=== PATIENT | male | born 1950 | race Caucasian/White ===

== ENCOUNTER 2019-11-26 15:10 | Inpatient (IN) | payer MEDICARE, OTHER ==
[~2019-11-26] VITALS: Ht 180.3 cm; Wt 115.7 kg
--- NOTE | 2019-11-26 16:31 | REP ---
Right lower extremity Duplex Doppler venous ultrasound: Real time compression and duplex Doppler interrogation of the right lower extremity deep venous system is performed. The right common femoral, superficial femoral and popliteal veins are fully compressible with transducer pressure and demonstrate normal spontaneous and phasic flow, without evidence of deep venous thrombosis. Impression: No evidence of deep venous thrombosis of the right lower extremity femoral popliteal venous system. Electronically Signed by Ranjith Lugo MD 11/26/2019 04:22 P
[2019-11-26 16:41] LABS: BASO % 0.4 % (0.0-1.0); EOS # 0.2 10^3/uL (0.0-0.5); EOS % 1.8 % (0.0-3.0); HEMATOCRIT 38.5 % (42.0-52.0); HEMOGLOBIN 12.8 g/dl (13.5-17.5); LYMPH # 0.9 10^3/uL (1.5-5.0); LYMPH % 8.6 % (24.0-44.0); MEAN CORPUSCULAR HEMOGLOBIN 31.4 pg (27.0-33.0); MEAN CORPUSCULAR HGB CONC 33.2 g/dl (32.0-36.5); MEAN CORPUSCULAR VOLUME 94.6 fl (80.0-96.0); MONO # 0.8 10^3/uL (0.0-0.8); MONO % 7.8 % (0.0-5.0); NEUTROPHILS # 8.6 10^3/uL (1.5-8.5); NEUTROPHILS % 80.8 % (36.0-66.0); PLATELET COUNT, AUTOMATED 234 10^3/uL (150-450); RED BLOOD COUNT 4.07 10^6/uL (4.30-6.10); WHITE BLOOD COUNT 10.6 10^3/uL (4.0-10.0)
[2019-11-26 17:12] LABS: BLOOD UREA NITROGEN 18 MG/DL (7-18); CARBON DIOXIDE LEVEL 28 MEQ/L (21-32); CHLORIDE LEVEL 104 MEQ/L (98-107); CREATININE FOR GFR 0.93 MG/DL (0.70-1.30); GLOMERULAR FILTRATION RATE > 60.0 (>49); GLUCOSE, FASTING 108 MG/DL (70-100); POTASSIUM SERUM 3.9 MEQ/L (3.5-5.1); SODIUM LEVEL 138 MEQ/L (136-145)
[2019-11-26 17:33] LABS: ERYTHROCYTE SEDIMENTATION RATE 85 mm/hr (0-20)
[2019-11-26 17:56] LABS: URIC ACID 4.6 MG/DL (3.5-7.2)
[2019-11-26] MEDS ORDERED: ceFAZolin SOD 1 GM in D5W MINI-BAG PLUS 50 ML IV ONE (18:00)
[2019-11-26] MEDS ORDERED: VANCOMYCIN HCL 1,000 MG, VIAL MATE ADAPTER 1 EACH in D5W 250 ML IV SCH (18:30)
[2019-11-26] MEDS ORDERED: GLAT40IN SC (18:40)
[2019-11-26] MEDS ORDERED: TERA5CAP3 PO (18:40)
[2019-11-26] MEDS ORDERED: FISH1000 PO ×2 (18:40)
[2019-11-26] MEDS ORDERED: OMEP1CAP73 PO (18:40)
[2019-11-26] MEDS ORDERED: GABA-843 PO (18:40)
[2019-11-26] MEDS ORDERED: BACL10TA2 PO (18:40)
[2019-11-26] MEDS ORDERED: ASPI81TA26 PO (18:40)
[2019-11-26] MEDS ORDERED: MAGN400C2 PO (18:40)
[2019-11-26] MEDS ORDERED: SIMV40TA20 PO (18:40)
[2019-11-26] MEDS ORDERED: D-40TAB2 PO (18:40)
[2019-11-26] MEDS ORDERED: CYAN1000VL IM (18:40)
[2019-11-26] MEDS ORDERED: cefTRIAXone SOD 2 GM in D5W MINI-BAG PLUS 50 ML IV SCH (20:00)
--- NOTE | 2019-11-26 20:05 | REP ---
Right knee series: Five views. History: Right knee pain. Findings: Five views of the right knee demonstrate marked swelling in the prepatellar soft tissues, question prepatellar bursitis. There is moderate three compartment osteoarthritis with patellofemoral narrowing and spur formation as well as medial and lateral compartment spur formation. There is an ossific density posterolaterally which may be a fabella. Lateral film however suggests an anterior loose body. No evidence of joint effusion. No fracture is seen. Impression: Marked prepatellar soft tissue swelling, question bursitis. Three compartment osteoarthritis. Possible loose bodies. Electronically Signed by Thomas Odonnell MD 11/26/2019 08:15 P
--- NOTE | 2019-11-26 21:05 | PHACANCOPD ---
PHARMACY VANCOMYCIN DOSING Pt Demographics Demographics Patient Age:69 , Weight:115.700 , Gender: male Adjusted Body Weight Date: 11/26/19, Adjusted Body Weight: Kg Events Past 24 Hours Events Past 24 Hours: YES: Elevation in WBC; NO: Dialysis, Diuretic Therapy, Change in CrCl, Fever, Pending Diagnostics, Pending Procedures, Other Vancomycin Vancomycin indication: Cellulitis, right knee pain Vancomycin Target Ranges: 10-20 mcg/ml Vancomycin Load Y/N: Yes Load Dose Date Time Vancomycin Load Dose: 2000mg Date: 11/26/19 Time: 2100 Vancomycin Dose Date: 11/26/19. Current Vancomycin Dose: [ 1500mg q8h @0500 ] Intermittent Dosing?: No Labs Labs Item Value Date Time White Blood Count 10.6 10^3/uL H 11/26/19 1625 Erythrocyte Sedimentation Rate 85 mm/hr H 11/26/19 1625 Creatinine 0.93 MG/DL 11/26/19 1625 Glomerular Filtration Rate > 60.0 11/26/19 1625 C-Reactive Protein, Quantitative 20.70 MG/DL H 11/26/19 1625 Creatinine Clearance Date:11/26/19. Creatinine Clearance: [ 82 mL/min ]. Assessment and Plan Maintaining Current Dose?: Yes Reason for dose change: No Dose Change Pharmacist Note Pharmacist Note Date: 11/26/19. Pharmacist note: Patient is a 69-year-old male who presented to [facility] with cellulitis and knee pain. He has no record of vancomycin therapy at [facility] and has great renal function. He was placed on broad- spectrum antibiotic therapy with ceftriaxone and vancomycin. A 2 gram loading dose of vancomycin was scheduled for 2099 tonight, with a subsequent maintenance dose of 1500mg every 8 hours starting tomorrow morning at 0500. A vancomycin trough level was scheduled for tomorrow at 2000, with a goal trough of between 10-20mcg/dL. We will continue to monitor and make adjustments as needed. [facility] Nov 26, 2019 21:05
--- NOTE | 2019-11-26 21:40 | CR ---
DATE OF CONSULTATION: 11/26/2019 CHIEF COMPLAINT: Right lower extremity redness and swelling. HISTORY OF THE PRESENT ILLNESS: This is a 69-year-old man who was brought into the emergency department for a 6 days history of spontaneous onset right lower extremity redness and swelling. This came on spontaneously, although he states he does have MS, so may have some difficulties with sensation, so maybe he bumped his knee. 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 He was doing some naga last week and being on his knees a lot, but he was unable to do that this weekend. He has had some systemic symptoms with fevers, chills and sweats but no other constitutional symptoms. No dysuria. No problems with bowel or bladder function. No cough or hemoptysis or upper extremity infection-type symptoms. He has been seen by the hospitalist now here at [facility] as well as assessed by the emergency room team. They were querying or wondering about a possible reactive swelling in the knee versus a septic arthritis versus simply lower extremity cellulitis. He has never had anything like this before. He states that the redness is about the same over the last 24 hours. It is not spreading, and he does not have obvious knee pain. PAST MEDICAL HISTORY: Includes MS, dyslipidemia and prediabetes. MEDICATIONS: He is on statin, fish oil, as well as three times weekly injection for his MS and a B12 shot. ALLERGIES: No known drug allergies. SURGICAL HISTORY: He has had a hernia repair, as well as a lipoma removal. No problems with that. SOCIAL HISTORY: He is a retired . 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 He is a nonsmoker. Does not use IV drugs. He occasionally uses alcohol. He is here with his significant other. PHYSICAL EXAM: Vital Signs: There was a blood pressure recorded as well as apparently he had a low grade temperature around 100 degrees. Other than those things communicated to me verbally, there is no obvious vital signs recorded in the chart. In terms of his upper extremities, there is no obvious redness, swelling or any pain to his shoulders, elbows, wrists or hands. No concerns with the right-sided hernia. No pain or swelling or redness there. He is alert and oriented times three. Mood and affect pleasant and positive and gait is not tested. Station is normal. He appears well. Appears stable. In terms of his left lower extremity, appears normal. In terms of the right lower extremity, there is a redness tracking from the knee downwards. There is no obvious knee effusion, but there is a moderate amount of prepatellar swelling and prepatellar bursitis. His range of motion actively and passively is 0 to 90 degrees. This is nontender, nonpainful for him. The calf is swollen but soft. There is redness tracking all the way down to the ankle. He is able to dorsiflex and plantar flex the ankle again without pain. He has full range of motion there, 5 degrees dorsiflexion, 35 degrees plantar flexion, moderate amount of swelling in the foot. Normal sensation throughout the foot aside from being normally altered from his MS. The foot is warm and well perfused. Pedal pulses difficult to palpate but capillary refill under 3 seconds. No pain to the calf with passive stretch. Radiographs were obtained of his right knee; AP, lateral, two obliques and a sunrise view. There is moderate chondrocalcinosis in the lateral compartment. Joint space reasonably well maintained, although there is some early degenerative narrowing and small osteophyte formation. Bones are well mineralized and no fracture. Duplex venous ultrasound was performed of the lower extremity; it was negative for DVT. Blood work demonstrates WBC count 10.6, hemoglobin 12.8, ESR 85, CRP 20.7. ASSESSMENT AND PLAN: This 69-year-old man appears to have cellulitis of his right lower extremity. Recommend treatment with IV antibiotics, and it sounds like they have already started IV Ancef for him. I have overall very low clinical suspicion of a septic knee or septic ankle. It seems like most of the swelling is in the prepatellar area. He is being admitted to the hospital, and I would recommend following his anti-inflammatory markers with CRP and ESR serially to make sure he is having good response to the antibiotics. I recommend this man be monitored in the hospital for at least 2-3 days to make sure good clinical response to the antibiotics. I recommend consultation with infectious disease specialist, Dr. Cruz. I will leave this consultation up to the hospitalist who admitted the patient. I would not recommend any acute surgical intervention to perform an irrigation and debridement of either his knee nor his ankle, and I would not aspirate the knee given that he has overlying cellulitis without effusion or signs of a septic joint. This could simply seed the knee with infection. I recommend weightbearing as tolerated, range of motion as tolerated of both his lower extremities. I will follow this man intermittently while admitted to the hospital. Thank you very much for the consult. Edited 11/28/2019 car[place] SRINIVASAN
[2019-11-26 22:00] VITALS: BP 130/69
[2019-11-26] MEDS: VANCOMYCIN HCL 1,000 MG, VIAL MATE ADAPTER 1 EACH in D5W 250 ML IV SCH ×2 (22:00→22:11)
[2019-11-26] MEDS: BACLOFEN 10 MG TAB PO SCH (22:11)
[2019-11-26] MEDS: SIMVASTATIN 20 MG TAB PO SCH (22:11)
[2019-11-26] MEDS: GABAPENTIN 300 MG CAP PO SCH (22:11)
[2019-11-26] MEDS: TERAZOSIN 5 MG CAP PO SCH (22:15)
[2019-11-27] MEDS ORDERED: VANCOMYCIN HCL 1,000 MG, VIAL MATE ADAPTER 1 EACH in D5W 250 ML IV SCH (01:15)
[2019-11-27] MEDS: PERCOCET 5MG/325MG TAB PO PRN ×3 (02:39→21:22)
[2019-11-27] MEDS: VANCOMYCIN HCL 500 MG in D5W MINI-BAG PLUS 100 ML IV SCH ×3 (05:09→21:23)
[2019-11-27 06:00] VITALS: BP 137/70
[2019-11-27] MEDS: VANCOMYCIN HCL 1,000 MG, VIAL MATE ADAPTER 1 EACH in D5W 250 ML IV SCH ×3 (06:17→22:37)
[2019-11-27 07:03] LABS: HEMATOCRIT 33.8 % (42.0-52.0); HEMOGLOBIN 11.5 g/dl (13.5-17.5); MEAN CORPUSCULAR HEMOGLOBIN 31.9 pg (27.0-33.0); MEAN CORPUSCULAR VOLUME 93.9 fl (80.0-96.0); PLATELET COUNT, AUTOMATED 225 10^3/uL (150-450); WHITE BLOOD COUNT 8.7 10^3/uL (4.0-10.0)
[2019-11-27 07:26] LABS: BLOOD UREA NITROGEN 17 MG/DL (7-18); CALCIUM LEVEL 8.9 MG/DL (8.8-10.2); CARBON DIOXIDE LEVEL 28 MEQ/L (21-32); CHLORIDE LEVEL 102 MEQ/L (98-107); CREATININE FOR GFR 0.84 MG/DL (0.70-1.30); GLOMERULAR FILTRATION RATE > 60.0 (>49); GLUCOSE, FASTING 129 MG/DL (70-100); POTASSIUM SERUM 3.8 MEQ/L (3.5-5.1); SODIUM LEVEL 134 MEQ/L (136-145)
[2019-11-27] MEDS: GABAPENTIN 300 MG CAP PO SCH ×4 (08:13→21:21)
[2019-11-27 08:28] LABS: CHOLESTEROL LEVEL 140 MG/DL (<200); CHOLESTEROL RISK RATIO 5.384 (<5); HDL CHOLESTEROL 26 MG/DL (>40); LDL CHOLESTEROL 95 MG/DL (<100); NON-HDL-C 114 MG/DL; TRIGLYCERIDES LEVEL 96 MG/DL (<150)
--- NOTE | 2019-11-27 08:48 | HPE ---
DATE OF ADMISSION: 11/26/2019 at approximately 6:30 p.m. CHIEF COMPLAINT: Right knee pain with associated redness and swelling. HISTORY OF THE PRESENT ILLNESS: Mr. Cardenas is a very pleasant 69-year-old gentleman who has a history of primary progressive multiple sclerosis as well as prediabetes, which he is not on any medications, and hyperlipidemia. This past Tuesday patient had been at his sister's house putting floors in when he stood up he started experiencing excruciating right knee pain and has developed worsening redness, which began on his knee and has spread down to his ankle. The patient usually seeks care at the [facility]. He went to the [facility] and had a knee x-ray done and such, and because of symptoms worsening came to the emergency room (ER) today. He was noted to be afebrile with a white blood cell count of 10.6 with the C-reactive protein (CRP) of 20 and erythrocyte sedimentation rate (ESR) of 85. In the ER, he underwent a venous duplex ultrasound, which did not show any evidence of clots. He was treated with intravenous (IV) cefazolin and recommended for admission to the hospitalist service for treatment of cellulitis. His allergies are NO KNOWN DRUG ALLERGIES (NKDA). His current home medications are: - baby aspirin daily - baclofen 10 mg twice a day - cholecalciferol - B12 injections - gabapentin - glatiramer acetate (which he takes 40 subcu three times a week on Tuesday, Tuesday and Tuesday) - magnesium oxide - fish oil - omeprazole - simvastatin - terazosin His past medical history is notable for hyperlipidemia, prediabetes, vitamin D, B12 deficiency, headache secondary to multiple sclerosis (MS), primary progressive MS. Surgical history is notable for right groin hernia repair, as well as right groin lipoma excision. SOCIAL HISTORY: He is . Lives at home. He is retired. He chews tobacco. He is nonsmoker. 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 Family history is notable for his dad who has muscular dystrophy and heart disease. Mom has hypertension. He has a brother who has blood clots but is not familiar with any family history of hypercoagulable states. REVIEW OF SYSTEMS: 12 system reviewed with the patient, otherwise negative. He denies having any fevers, any chills. He does not inject any drugs. He denies having any penile tenderness or discharge. On examination, the patient is afebrile with stable vital signs. His head is atraumatic, normocephalic. Pupils symmetrical and react to light. Extraocular muscles are full. Neck is supple. Lung sounds present without rales or rhonchi. Heart: S1, S2. No murmurs or gallops. Abdomen is soft, nontender and nondistended. Extremities are on the left side without any swelling, redness or erythema. His right lower extremity from his superior aspect of his patella all the way down to the ankle is inflamed and swollen and warm to touch. No evidence of fluctuance or pustular discharge is appreciated. No evidence of any noticeable areas of skin breakdown. RELEVANT LABS: White count 7.6, hemoglobin 12.8, hematocrit 38.5, platelet counts are 234. Sodium 138, potassium 4.9, chloride 104, bicarbonate 28, BUN 18, creatinine 0.93, glucose 108, uric acid 4.6, calcium is 9. CRP is 20. IMPRESSION: 1. Right knee pain with associated erythema. At this point in time, I am concerned that this could likely be an inflammatory arthritis or the beginning of a early septic arthritis. The patient will be admitted to a general medical floor. He will be placed on vancomycin and IV Rocephin. I have contacted orthopedic, and they will come and evaluate him and see if he needs a knee tap. The patient will be placed on Percocet and Tylenol for supportive symptom management. He will be placed on Lovenox for deep venous thrombosis (DVT) prophylaxis. 2. History of primary progressive multiple sclerosis. The patient can be continued on his home medication of Copaxone. 3. Hyperlipidemia. The patient can be continued on simvastatin. The patient will be a FULL CODE.
[2019-11-27] MEDS ORDERED: ENOXAPARIN 40 MG/0.4 ML SYRINGE (J1650) SC SCH (09:00)
[2019-11-27 10:38] LABS: HEMOGLOBIN A1c 6.1 %
[2019-11-27] MEDS: BACLOFEN 10 MG TAB PO SCH ×2 (11:19→21:22)
[2019-11-27] MEDS: OMEPRAZOLE 20 MG CAP PO SCH (11:19)
[2019-11-27 13:42] VITALS: BP 138/69
[2019-11-27] MEDS: ceFAZolin SOD 2 GM in IV 1 EA IV SCH (17:08)
--- NOTE | 2019-11-27 20:35 | IPN ---
DATE: 11/27/2019 SUBJECTIVE: The patient complains 3 out of 10 pain as the right knee is elevated on pillow without any movement. He said that last night he used one Percocet due to shooting sharp pain from his midthigh down to the knee that was throbbing and achy with pain of 10 out of 10 with one Percocet that got his pain down to about a 3 out of 10. He is not ambulating this morning. No fever, chills overnight. No other issues per nursing. Patient described decreased sensation of the right leg due to numbness and swelling. He is able to move his toes okay. No other complaints overnight. He said he has been moving around with the use of a cane and hobbling at home. He has a two story home, and two of 's boys live with him at home and they are able to help him out. Patient has had some issues with mobility due to history of multiple sclerosis for which he sees a [place] neurologist. He has previously refused treatment with steroids. "My neurologist lets me decide on my treatment". It is a primary progressive multiple sclerosis. He has not had a exacerbation in over a year and sees his neurologist every 6 months. OBJECTIVE: VITAL SIGNS: Temperature 98.8, pulse 74, respiratory rate 18, blood pressure 137/70, 96% on room air. GENERAL: Patient is awake, alert, oriented to person, place and time. Answering questions appropriately. Pupils are round and reactive. Extraocular muscles are intact. Moist mucous membranes. No jugular venous distention (JVD), no thyromegaly. LUNGS: Clear to auscultation. No wheezing, rales or rhonchi. HEART: S1, S2, sinus rhythm. No murmurs, rubs or gallops. ABDOMEN: Obese, soft, nontender, nondistended. Positive bowel sounds in four quadrants. No hepatosplenomegaly. No abdominal bruits. EXTREMITIES: Significant erythema up to the knee. Significant diffusion. Tender to palpation and dorsalis pedis, posterior tibialis are noted. LABORATORY DATA: White count 8.7, hemoglobin 11, hematocrit 33, platelet count 225, sodium 134, potassium 3.8, chloride 102, bicarbonate 28, BUN 17, creatinine 0.84, glucose 129. C-reactive protein on admission 20.7. Sed rate of 85. IMAGING STUDIES: Vascular ultrasound 11/26/2019: No evidence of deep venous thrombosis (DVT) of the right lower extremity femoral popliteal venous system. X-ray of the right knee: Marked prepatellar soft tissue swelling, question bursitis, three compartment osteoarthritis, possible loose body. ASSESSMENT AND PLAN: This is a 69-year-old male with history of primary progressive multiple sclerosis, dyslipidemia and prediabetic, obese, BMI of 35.6, presented with six day history of right knee swelling, redness and edema with difficulty ambulating. CURRENT ISSUES: 1. Right lower extremity cellulitis with swelling of the right knee. No plans for arthrocentesis per orthopedic surgery due to overlying cellulitis and risk of infection with arthrocentesis into the bursa. Currently on intravenous vancomycin, doing well. Afebrile with white count decreasing. Dr. Cruz infectious disease specialist has been consulted. On ceftriaxone and vancomycin. 2. Primary progressive multiple sclerosis. Currently without any acute weakness. Patient follows with a neurologist in [place] every 6 months has refused steroid treatments in the past. 3. Dyslipidemia. Resumed on his home dose of Zocor 20 mg at bedtime. 4. Chronic neuropathy. On Neurontin. 5. Prediabetic. Check A1c. 6. Hemodilutional anemia. No current indication for RBC transfusion. DISPOSITION: Await recommendations from infectious disease as well as physical therapy (PT) evaluation, occupational therapy (OT) and treatment.
[2019-11-27] MEDS: SIMVASTATIN 20 MG TAB PO SCH (21:22)
[2019-11-27] MEDS: TERAZOSIN 5 MG CAP PO SCH (21:22)
[2019-11-27] MEDS: DIMETHICONE 2% OINTMENT(VANIPLY) 70GM TUBE TOP SCH (21:22)
[2019-11-27 22:00] VITALS: BP 130/69
--- NOTE | 2019-11-28 00:16 | CR ---
DATE OF CONSULTATION: 11/27/2019 INFECTIOUS DISEASE CONSULTATION Asked to consult by hospitalist for evaluation of right lower extremity cellulitis with suprapatellar bursitis. HISTORY OF PRESENT ILLNESS: Mr. Cardenas is a pleasant 69-year-old gentleman with a history of progressive multiple sclerosis. The patient had been remodeling his house and was putting some hardwood floor in his house when he was kneeling on his knee and developed severe excruciating right knee pain. He was home for about 5 days with worsening knee pain and progressive cellulitis that started in the knee area and then evolved all the way the au into the ankle. Then he noticed that it was also involving the thigh and therefore, he came to the hospital. [facility] He had a fever of 100.3 today. His white count was slightly elevated, and he had an increased sedimentation (sed) rate and CRP. He was seen in consultation from orthopedic surgery who did not feel the patient had a septic arthritis or aspiration of the knee joint was recommended. An ultrasound of the leg did not show any evidence of deep vein thrombosis (DVT). The patient was treated with IV cefazolin initially, then he was switched to IV Rocephin and vancomycin. ALLERGIES: No known drug allergies. MEDICATIONS: At home: - baby aspirin - baclofen 10 mg twice a day - B12 injection - gabapentin 600 mg by mouth four times a day - glatiramer acetate 48 units subcu three times a week on Tuesday, Tuesday, Tuesday. - omeprazole 20 mg daily - Lovenox 40 mg subcu daily - simvastatin 20 mg by mouth nightly - Hytrin 5 mg by mouth nightly - Percocet two tablets by mouth every 6 hours as needed for pain Currently the patient is on vancomycin 1 gram IV every 8 hours and Rocephin 2 grams IV every 24 hours. LABORATORY DATA: White count was 10.6 yesterday, today 8.7, hemoglobin 11.5, hematocrit 33.8, platelets 225, ESR 85. Sodium 134, potassium 3.8, chloride 102, bicarbonate 28, BUN 17, creatinine 0.84, glucose 129, HbA1c 6.9, calcium 8.9, CRP 20.7, triglycerides 96, cholesterol 140. Serology - methicillin-resistant Staphylococcus aureus (MRSA) screen was not detected. IMAGING STUDIES: Knee x-ray showed marked prepatellar soft tissue swelling consistent with bursitis, three compartment osteoarthritis and questionable loose body. PAST MEDICAL HISTORY: Significant for progressive multiple sclerosis, benign prostatic hypertrophy, gastroesophageal reflux disease, hyperlipidemia, prediabetic, vitamin D and B12 deficiency, chronic headaches from multiple sclerosis. PHYSICAL EXAMINATION: On physical exam, he is a healthy-looking gentleman in no acute distress. Temperature is 100.3, pulse 78, respirations 18, blood pressure 138/69, oxygen saturation (O2 sat) 98% on room air. Heart: Normal S1, S2. No murmurs, rubs or gallops. Lungs are clear. No wheezes, rales or rhonchi. Abdomen: Soft, nontender. No hepatosplenomegaly. Back: No costovertebral angle (CVA) or lumbosacral tenderness. Extremities: +1 ankle edema on the right side. He has a very large prepatellar bursa severely tender to touch, fluctuant. Cellulitis extends from the mid thigh all the way down to the ankle. His right knee has normal range of motion, except for tension, he can flex it about 90 degrees. Neck: Supple. No jugular venous distention (JVD). No bruits. Oropharynx is clear. Neurologic: Exam grossly normal heart. IMPRESSION: This is a 69-year-old gentleman admitted with prepatellar bursitis and secondary lower extremity cellulitis. The most common etiology is Staphylococcus (staph) aureus. Even though his MRSA screen is negative, this could still be MRSA, and I, therefore, would not recommend discontinuation of vancomycin until we have a pathogen. PLAN: Continue IV vancomycin 1.5 grams every 8 hours per pharmacy dosing. Discontinue IV Rocephin, switch to cefazolin 2 grams IV every 8 hours to cover for methicillin-sensitive Staphylococcus aureus (MSSA) that would be better coverage. The case was discussed with Dr. Jack who agrees on doing an aspiration of the prepatellar bursa to decompress the knee as well as to obtain a pathogen and, therefore, we can de-escalate therapy appropriately using either cefazolin or vancomycin. This will be done tomorrow morning by Dr. Jack.
[2019-11-28] MEDS: ceFAZolin SOD 2 GM in IV 1 EA IV SCH ×3 (00:57→16:59)
[2019-11-28] MEDS: VANCOMYCIN HCL 500 MG in D5W MINI-BAG PLUS 100 ML IV SCH (05:32)
[2019-11-28 05:50] VITALS: BP 136/68
[2019-11-28 06:00] VITALS: BP 136/68
[2019-11-28] MEDS: VANCOMYCIN HCL 1,000 MG, VIAL MATE ADAPTER 1 EACH in D5W 250 ML IV SCH ×2 (06:30→22:29)
[2019-11-28 07:44] VITALS: BP 144/69
[2019-11-28 07:58] LABS: BASO % 0.4 % (0.0-1.0); EOS # 0.1 10^3/uL (0.0-0.5); EOS % 1.7 % (0.0-3.0); HEMATOCRIT 33.2 % (42.0-52.0); HEMOGLOBIN 11.1 g/dl (13.5-17.5); LYMPH # 0.8 10^3/uL (1.5-5.0); LYMPH % 10.5 % (24.0-44.0); MEAN CORPUSCULAR HEMOGLOBIN 31.4 pg (27.0-33.0); MEAN CORPUSCULAR HGB CONC 33.4 g/dl (32.0-36.5); MEAN CORPUSCULAR VOLUME 94.1 fl (80.0-96.0); MONO # 0.4 10^3/uL (0.0-0.8); MONO % 5.2 % (0.0-5.0); NEUTROPHILS # 6.2 10^3/uL (1.5-8.5); NEUTROPHILS % 80.9 % (36.0-66.0); PLATELET COUNT, AUTOMATED 227 10^3/uL (150-450); RED BLOOD COUNT 3.53 10^6/uL (4.30-6.10); WHITE BLOOD COUNT 7.6 10^3/uL (4.0-10.0)
[2019-11-28] MEDS ORDERED: PERCOCET 5MG/325MG TAB PO ONE (08:00)
[2019-11-28 08:08] LABS: INR 1.23; PROTHROMBIN TIME 15.3 SECONDS (11.8-14.0)
[2019-11-28 08:09] LABS: PARTIAL THROMBOPLASTIN TIME 34.3 SECONDS (25.0-38.4)
[2019-11-28 08:16] LABS: BLOOD UREA NITROGEN 13 MG/DL (7-18); CARBON DIOXIDE LEVEL 25 MEQ/L (21-32); CHLORIDE LEVEL 102 MEQ/L (98-107); GLOMERULAR FILTRATION RATE > 60.0 (>49); GLUCOSE, FASTING 206 MG/DL (70-100); POTASSIUM SERUM 3.9 MEQ/L (3.5-5.1); SODIUM LEVEL 135 MEQ/L (136-145)
[2019-11-28 08:28] LABS: ERYTHROCYTE SEDIMENTATION RATE 68 mm/hr (0-20)
[2019-11-28 09:00] VITALS: BP 144/69
[2019-11-28] MEDS ORDERED: FLUBLOK(EGG FREE)(QUAD)INFLUENZA VACC 0.5ML SYRINGE (90682)18YRS&OLDER IM ONE (09:00)
[2019-11-28] MEDS: GABAPENTIN 300 MG CAP PO SCH ×4 (09:17→20:27)
[2019-11-28] MEDS: DIMETHICONE 2% OINTMENT(VANIPLY) 70GM TUBE TOP SCH ×2 (09:21→20:29)
[2019-11-28] MEDS: OMEPRAZOLE 20 MG CAP PO SCH (12:43)
[2019-11-28] MEDS: BACLOFEN 10 MG TAB PO SCH ×2 (12:44→20:27)
[2019-11-28 14:01] VITALS: BP 139/71
[2019-11-28] MEDS ORDERED: VANCOMYCIN HCL 500 MG in D5W MINI-BAG PLUS 100 ML IV SCH (14:30)
[2019-11-28] MEDS ORDERED: VANCOMYCIN HCL 500 MG in D5W MINI-BAG PLUS 100 ML IV ONE (15:00)
[2019-11-28] MEDS: PERCOCET 5MG/325MG TAB PO PRN (15:06)
--- NOTE | 2019-11-28 15:28 | IPN ---
DATE: 11/28/2019 CHIEF COMPLAINT: Cellulitis right lower extremity. HISTORY OF PRESENT ILLNESS: This 69-year-old man presented with cellulitis of his right lower extremity. He was placed on IV antibiotics. I had a conversation with Dr. Cruz yesterday, the infectious disease specialist. She recommended an aspiration of the prepatellar bursa region to send for cultures to decide on tailoring the antibiotics. This man was seen today on the [facility] of [address] [place] [address]. He is doing well, feeling well. PHYSICAL EXAMINATION: The redness is about the same or perhaps abating slightly. He is still able to flex and extend his knee without difficulty 0 to 90 degrees, as well as at his ankle. There is an area of redness anterior to his knee and some slight fluctuance in that area. Laboratory studies today reveal a WBC 7.6, ESR 68, and CRP 13.9. ASSESSMENT/PLAN: This is a 69-year-old man. We talked about the pros, cons, risks and benefits of not aspirating the prepatellar region versus doing and aspiration of the prepatellar bursa region to send for culture and sensitivity and gram stain. Specific risks of this small procedure include, but are not limited to, infection or spreading the infection, persistent drainage, pain and some minor amount of bleeding, and other risks. He wished to go ahead. PROCEDURE NOTE: I prepped and anterior aspect of the knee with chlorhexidine swabs and allowed this to thoroughly dry. I used sterile gloves, sterile no touch technique. I used a 20 mL and an 18 gauge needle. I aspirated the anterior aspect of the prepatellar bursa region. I aspirated about 1-2 mL of purulent fluid. I sent this to the lab with the syringe and the needle all together in a bag that was labeled with his name and the site and the date. I have communicated directly to the nursing staff to have them send this to the lab for gram stain and culture and sensitivity. I placed a bandage over this as there was a small drop of blood and overwrapped this with Maeve bandage. I asked him to leave that on for about a day and then change the bandage tomorrow and keep it clean and dry. He tolerated the procedure well. No complications.
[2019-11-28 16:07] LABS: CRYSTALS, BODY FLUID NONE SEEN (NONE SEEN); SOURCE, BODY FLUID RT KNEE; SOURCE, BODY FLUID CRYSTALS RT KNEE; SYNOVIAL FLUID COLOR YELLOW (YELLOW)
[2019-11-28] MEDS: SIMVASTATIN 20 MG TAB PO SCH (20:28)
[2019-11-28] MEDS: TERAZOSIN 5 MG CAP PO SCH (20:28)
--- NOTE | 2019-11-28 21:58 | IPN ---
DATE: 11/28/2019 Maximal temperature overnight was 100.3. Patient has no chills. He complains of increased swelling at the right knee but decreased redness and swelling of the right calf and leg. Patient's ambulation is limited due to severe pain. Rates that pain as 4/10 at the bedside with sitting, elevated on one pillow and lying down. It worsens to about a 7-8 out of 10 when he tries to ambulate. He says that movement of the joint is a little easier but still painful. Otherwise, he has had one loose stool this morning. Appetite has been the same. No nausea or vomiting. VITAL SIGNS: Maximal temperature 100.3, current temperature 99.5, pulse 79, respiratory rate 18, blood pressure 136/68, 95% on room air. GENERAL: Awake, alert, oriented times three, answering questions appropriately. Moist mucous membranes. LUNGS: Clear to auscultation. No wheezes, rales, or rhonchi. HEART: S1, S2, sinus rhythm. ABDOMEN: Obese, soft, nontender, nondistended. EXTREMITIES: Improved erythema and edema of the right lower extremity. Increased effusion of the right knee with some point tenderness. Limited range of motion with flexion/extension. Left lower extremity there is no swelling, edema, or redness. Laboratory data and imaging studies have all been reviewed. ASSESSMENT AND PLAN: A 69-year-old male with history of primary progressive multiple sclerosis. Follows with a neurologist in [place]. Dyslipidemia, prediabetic, obese, body mass index (BMI) of 35,6 presented with a 6-day history of right knee swelling, redness, edema with underlying cellulitis of the right lower extremity and difficulty ambulating. IMPRESSION: 1. Right lower extremity cellulitis with right knee effusion, possible septic arthritis. Per infectious disease recommendations, patient is to undergo arthrocentesis by Dr. Jack today. Pain is managed by Percocet, and gets the pain from 7-8 out of 10 to about 3/10. He remains with low-grade temperatures of 100.3 maximal temperature. He is currently on intravenous (IV) vancomycin. Ceftriaxone was discontinued yesterday, on IV cephazolin to cover for methicillin-sensitive Staphylococcus aureus (MSSA). Methicillin-resistant Staphylococcus aureus (MRSA) with vancomycin. Await culture results after arthrocentesis today. 2. Primary progress multiple sclerosis. No acute weakness. Sees a neurologist in [place] every 6 months and has refused steroid treatments in the past. 3. Dyslipidemia, on home dose of Zocor. 4. Chronic neuropathy, on Neurontin. 5. Hemodilutional anemia, asymptomatic. DISPOSITION: Awaiting results of the arthrocentesis synovial fluid analysis today, 2-3 days pending microbiology results.
[2019-11-28 22:00] VITALS: BP 138/70
[2019-11-29] MEDS: ceFAZolin SOD 2 GM in IV 1 EA IV SCH ×3 (00:02→16:18)
[2019-11-29 06:00] VITALS: BP 137/72
[2019-11-29] MEDS: VANCOMYCIN HCL 1,000 MG, VIAL MATE ADAPTER 1 EACH in D5W 250 ML IV SCH ×3 (06:11→22:24)
[2019-11-29 07:13] LABS: HEMATOCRIT 33.5 % (42.0-52.0); HEMOGLOBIN 11.4 g/dl (13.5-17.5); MEAN CORPUSCULAR HEMOGLOBIN 31.7 pg (27.0-33.0); MEAN CORPUSCULAR VOLUME 93.1 fl (80.0-96.0); PLATELET COUNT, AUTOMATED 241 10^3/uL (150-450); WHITE BLOOD COUNT 9.2 10^3/uL (4.0-10.0)
[2019-11-29 07:34] LABS: BLOOD UREA NITROGEN 10 MG/DL (7-18); CALCIUM LEVEL 8.4 MG/DL (8.8-10.2); CARBON DIOXIDE LEVEL 28 MEQ/L (21-32); CHLORIDE LEVEL 104 MEQ/L (98-107); CREATININE FOR GFR 0.81 MG/DL (0.70-1.30); GLOMERULAR FILTRATION RATE > 60.0 (>49); GLUCOSE, FASTING 137 MG/DL (70-100); SODIUM LEVEL 138 MEQ/L (136-145)
[2019-11-29] MEDS: DIMETHICONE 2% OINTMENT(VANIPLY) 70GM TUBE TOP SCH ×2 (09:00→20:21)
[2019-11-29] MEDS: GABAPENTIN 300 MG CAP PO SCH ×4 (09:01→20:18)
[2019-11-29] MEDS: PERCOCET 5MG/325MG TAB PO PRN ×2 (09:11→16:39)
[2019-11-29 10:04] VITALS: BP 122/62
[2019-11-29 10:23] VITALS: BP 122/62
[2019-11-29] MEDS: BACLOFEN 10 MG TAB PO SCH ×2 (12:25→20:19)
[2019-11-29] MEDS: OMEPRAZOLE 20 MG CAP PO SCH (12:25)
[2019-11-29 14:00] VITALS: BP 124/63
[2019-11-29 14:26] VITALS: BP 121/81
[2019-11-29] MEDS ORDERED: MORPHINE 4 MG/ML 1ML VIAL/SYRINGE (J2270) IV PRN (16:30)
[2019-11-29] MEDS ORDERED: LIDOCAINE 1% MDV 20ML VIAL IM ONE (16:45)
--- NOTE | 2019-11-29 18:30 | IPN ---
DATE: 11/29/2019 SUBJECTIVE: Overnight, patient has a maximum temperature (T-max) of 100.8. He has increasing burning and sharp pain in the right knee with increasing swelling. Leg, however, has decrease in swelling and redness. Worse when he bends the knee, better when he straightens out as he walks to the bathroom. Patient has been taking Percocet 2 tablets every 6 hours, which helps. He has no complaints of constipation or urinary retention. Arthrocentesis synovial fluid shows few gram-positive cocci, currently on intravenous cefazolin and vancomycin. Still awaiting final culture and sensitivity results. VITAL SIGNS: T-max 100.8, pulse 90, respiratory rate 18, blood pressure 137/72, 95% on room air. GENERAL: Awake, alert, oriented times three, answering questions appropriately. LUNGS: Clear to auscultation. No wheezing, rales or rhonchi. HEART: S1, S2. Sinus rhythm. ABDOMEN: Soft, nontender, nondistended. Obese abdomen. EXTREMITIES: Significant erythema in the right knee, effusion, tenderness, difficulty with range of motion due to severe pain. Unable to flex and extend. Positive edema right lower extremity. Left lower extremity skin color is pink, dry, with no edema. LABORATORY DATA: White count 9.2, hemoglobin 11, hematocrit 33, platelet count 241. Sodium 138, potassium 4, chloride 104, bicarbonate 28, BUN 10, creatinine 0.8, glucose of 137. Synovial fluid: Few gram-positive cocci in pairs. ASSESSMENT AND PLAN: This is a 69-year-old male with primary progressive multiple sclerosis, follows with a neurologist in [place], dyslipidemia, prediabetic, obese, body mass index (BMI) of 35.6, with probably sleep apnea, presented with a six day history of right knee swelling, redness and tenderness, admitted for right lower extremity cellulitis and right knee septic arthritis. IMPRESSION: 1. Right knee septic arthritis status post arthrocentesis with fluid showing few gram-positive cocci. Currently on intravenous (IV) vancomycin for methicillin-resistant Staphylococcus aureus (MRSA) and IV cefazolin for methicillin-sensitive Staphylococcus aureus (MSSA). Infectious disease (ID) has been consulted and still awaiting further recommendations pending sensitivity results. Patient's white count has been normal for the past few days; however, he continues to have a temperature of 100.8, for which I got urinalysis (UA), chest x-ray, blood cultures. 2. Primary progressive multiple sclerosis. No acute symptoms. Sees a neurologist in [place] every six months. 3. Dyslipidemia. On home dose of Zocor. 4. Chronic neuropathy. On Neurontin. 8. Hemodilutional anemia. Currently asymptomatic. DISPOSITION: Two to three days, pending clinical improvement and results of the arthrocentesis fluid sensitivity results.
[2019-11-29] MEDS: ACETAMINOPHEN TAB 650MG DOSE (2X325MG) PO PRN (20:18)
[2019-11-29] MEDS: SIMVASTATIN 20 MG TAB PO SCH (20:18)
[2019-11-29] MEDS: TERAZOSIN 5 MG CAP PO SCH (20:21)
[2019-11-29 22:00] VITALS: BP 123/62
[2019-11-30] VITALS (7 sets, daily range): BP systolic 116–124; BP diastolic 54–65
[2019-11-30 05:17] LABS: HEMATOCRIT 33.7 % (42.0-52.0); HEMOGLOBIN 11.3 g/dl (13.5-17.5); MEAN CORPUSCULAR HEMOGLOBIN 31.3 pg (27.0-33.0); MEAN CORPUSCULAR HGB CONC 33.5 g/dl (32.0-36.5); MEAN CORPUSCULAR VOLUME 93.4 fl (80.0-96.0); PLATELET COUNT, AUTOMATED 236 10^3/uL (150-450); RED BLOOD COUNT 3.61 10^6/uL (4.30-6.10); WHITE BLOOD COUNT 9.5 10^3/uL (4.0-10.0)
[2019-11-30 05:47] LABS: BLOOD UREA NITROGEN 11 MG/DL (7-18); CARBON DIOXIDE LEVEL 32 MEQ/L (21-32); CHLORIDE LEVEL 104 MEQ/L (98-107); CREATININE FOR GFR 0.87 MG/DL (0.70-1.30); GLOMERULAR FILTRATION RATE > 60.0 (>49); GLUCOSE, FASTING 122 MG/DL (70-100); POTASSIUM SERUM 4.5 MEQ/L (3.5-5.1); SODIUM LEVEL 138 MEQ/L (136-145); VANCOMYCIN LEVEL TROUGH 14.3 UG/ML (10.0-20.0)
[2019-11-30] MEDS: VANCOMYCIN HCL 1,000 MG, VIAL MATE ADAPTER 1 EACH in D5W 250 ML IV SCH (05:56)
[2019-11-30] MEDS: ACETAMINOPHEN TAB 650MG DOSE (2X325MG) PO PRN (05:57)
[2019-11-30] MEDS: GABAPENTIN 300 MG CAP PO SCH ×4 (08:54→20:48)
[2019-11-30] MEDS: DIMETHICONE 2% OINTMENT(VANIPLY) 70GM TUBE TOP SCH ×2 (08:55→20:51)
[2019-11-30] MEDS ORDERED: ENOXAPARIN 40 MG/0.4 ML SYRINGE (J1650) SC SCH (09:00)
[2019-11-30] MEDS ORDERED: D5W/0.45% SODIUM CHLORIDE 1,000 ML IV SCH (10:45)
[2019-11-30] MEDS ORDERED: KETOROLAC 30 MG/ML VIAL (J1885) IV SCH (11:00)
[2019-11-30] MEDS: NAFCILLIN SOD 2 GM in D5W MINI-BAG PLUS 50 ML IV SCH ×3 (11:19→22:48)
[2019-11-30] MEDS ORDERED: MORPHINE 10 MG/ML 1ML VIAL (J2270) IV ONE (11:45)
[2019-11-30] MEDS ORDERED: KETOROLAC 30 MG/ML VIAL (J1885) IV ONE (11:45)
[2019-11-30] MEDS ORDERED: oxyCODONE 5MG TAB PO ONE (12:30)
[2019-11-30] MEDS: BACLOFEN 10 MG TAB PO SCH ×2 (13:00→20:48)
[2019-11-30] MEDS: OMEPRAZOLE 20 MG CAP PO SCH (13:01)
[2019-11-30] MEDS ORDERED: ROPIvacaine 0.5% 30 ML INJECTION (J2795 PER 1MG) As Ordered ONE (14:08)
--- NOTE | 2019-11-30 15:07 | IPN ---
DATE: 11/29/2019 Mitesh is seen and examined at the bedside this afternoon. He still states that he is in a lot of pain in his right knee and now has noticed that his entire right leg is swollen and painful. He was seen by orthopedic surgery yesterday who drained about 1 mL of fluid from his knee and sent it for cultures. He states that he is still unable to bend his knee and when he tries to walk around his room, his foot is extremely painful so he has spent a lot of time in bed today. He is anxious to have some kind of resolution to the issue and is willing to have his knee fully drained if possible. OBJECTIVE: VITAL SIGNS: Temperature of 100.2, pulse of 80, respiratory rate of 18, blood pressure 121/81, pulse oximetry 96% on room air. In the past 24 hours, had a maximum temperature (T-max) of 100.8. GENERAL: He is laying in bed. He is calm, cooperative, pleasant, in no acute distress. HEENT: Normocephalic, atraumatic. His pupils are equal, round, and reactive to light. Extraocular movements are intact. His mucous membranes are moist. Neck is supple with no thyromegaly and no lymphadenopathy. CHEST: He has even chest rise. LUNGS: Clear to auscultation bilaterally with no adventitious breath sounds. HEART: Regular rate and rhythm with no murmurs, rubs or gallops. Normal S1 and normal S2. ABDOMEN: Soft and nontender to palpitation. Positive bowel sounds. No organomegaly. No masses. EXTREMITIES: His right leg is swollen up to the knee. There is about 2+ pitting edema. There is evidence of skin changes due to the erythema. His knee is acutely inflamed, very painful to touch. Cellulitic tissue extends all the way up into the mid thigh. He has normal range of motion of his toes and his ankle but he is only able to flex his knee about 80 degrees. NEUROLOGIC: Cranial nerves II-XII are intact with no obvious focal deficits. LABORATORY DATA: Today, his CBC demonstrates a white blood cell count of 9.2, hemoglobin 11.4, and hematocrit of 33.5 with a platelet count 241. His sedimentation rate has trended down from 85-68. His chemistries show a sodium of 138, a potassium of 4, carbon dioxide 28, BUN 10, and creatinine of 0.81. His last known CRP was drawn yesterday and trended down from 20.7 to 13.9. The synovial fluid that was drained from his knee on 11/28/2019 was sent to the laboratory, described as does not have any crystals, very yellow, clouded. No white blood cells and no red blood cells could be appreciated. So far on the gram-stain of his synovial fluid, there are many white blood cells and few gram-positive cocci in pairs. No new imaging has been done. IMPRESSION: This is a 69-year-old gentleman admitted with prepatellar bursitis and secondary lower extremity cellulitis. Most common etiology is Staphylococcus aureus. PLAN: We would recommend that the patient needs to have his right knee effusion drained. Likely, most of his pain is related to the pressure put on his patella from all the fluid in his joint. Therefore, he will be referred to interventional radiology or myself or one of the other residents will have to drain it. We agree with the continuation of Ancef 2 grams IV every eight hours and elevation of the knee as well as pain management with morphine and Percocet at this time. Once we are able to obtain a pathogen on the gram-stain and culture, we can then deescalate antibiotics accordingly. ZARINA
--- NOTE | 2019-11-30 15:36 | IPN ---
DATE: 11/29/2019 Mr. Cardenas is doing fairly well except for significant right knee pain. He states his right knee pain has not improved at all in the past 48 hours. He feels a lot of tension in the right kneecap. He had an aspiration done yesterday by Dr. Jack, but only 1 mL was aspirated and sent to the lab. Gram stain showed gram-positive cocci in pairs. Culture still pending. He continues to have low grade fevers up to 100.5. No nausea, vomiting or diarrhea. No abdominal pain. PHYSICAL EXAMINATION Temperature is 100.2, pulse 80, respirations 18, blood pressure 121/81, oxygen saturation 96% on room air. HEART: Normal S1, S2. No murmurs, rubs or gallops. LUNGS: Clear. No wheezes or rhonchi. ABDOMEN: Obese, soft, nontender. No visceromegaly. BACK: No costovertebral angle (CVA) tenderness. EXTREMITIES: +1 edema on the right side. No edema on the left side. There is erythema from the knee, including the prepatellar bursa, which is very swollen and fluctuant all the way to the ankle with tenderness. He has good range of motion of the knee. Under ultrasound guidance, Dr. Elma Oliveira, after consent, was able to aspirate about 8 mL of bloody, purulent fluid from the lateral aspect of the knee and another 1 mL from the medial aspect of the knee. There was some persistent drainage at the puncture site of the needle when we finished the procedure. This was done under sterile condition and lidocaine was placed after the patient consented. LABORATORY DATA: White count is 9.2, hemoglobin 11.4, hematocrit 33.5, platelets 241. Erythrocyte sedimentation rate 68. Sodium 138, potassium 4, chloride 104, bicarbonate 28, BUN 10, creatinine 0.81, glucose 137. HbA1c 6.1. CRP 13.9 down from 20.7. Body fluid culture is pending. Gram stain has gram positive cocci in pairs. Today's culture and gram stain and pending. IMPRESSION: Prepatellar bursitis of the right knee with secondary cellulitis of the right leg with very slow improvement. The patient has persistent fever and therefore an aspiration of the bursa was done for diagnostic and therapeutic purposes. PLAN: Will continue to follow on results of culture. At this time, I have discontinued cefazolin and will discontinue with intravenous (IV) vancomycin 1 gram every 8 hours until we have the results of culture, as the patient did not have bacteremia. If he has, will de-escalate treatment depending on if it is methicillin-sensitive Staphylococcus aureus (MSSA) or methicillin-resistant Staphylococcus aureus (MRSA) or Streptococcus, since the gram stain may be suggestive of Streptococcus, which is less likely. MTDD
[2019-11-30] MEDS ORDERED: fentaNYL 100 MCG/2 ML INJECTION (J3010) As Ordered ONE ×2 (18:11→18:25)
[2019-11-30] MEDS ORDERED: LIDOCAINE 2% INJ 100 MG/5 ML SDV (FOR ANES.) As Ordered ONE (18:11)
[2019-11-30] MEDS ORDERED: MIDAZOLAM INJ 2 MG/2 ML VIAL (J2250) As Ordered ONE (18:11)
[2019-11-30] MEDS ORDERED: dexameTHASONE 4 MG/ML 1ML VIAL (J1100) As Ordered ONE (18:11)
[2019-11-30] MEDS ORDERED: METOCLOPRAMIDE INJ 10MG/2ML VIAL (J2765) As Ordered ONE (18:11)
[2019-11-30] MEDS ORDERED: propofoL 200 MG/20 ML VIAL As Ordered ONE (18:11)
[2019-11-30] MEDS ORDERED: ONDANSETRON 4MG/2ML VIAL (J2405) As Ordered ONE (18:11)
[2019-11-30] MEDS ORDERED: SEVOFLURANE INHAL SOLN 250 ML BTL As Ordered ONE (18:20)
[2019-11-30] MEDS ORDERED: ACETAMINOPHEN 1000MG 100ML IV BTL (OFIRMEV) (J0131 PER 10MG) As Ordered ONE (18:41)
[2019-11-30] MEDS ORDERED: LR 1,000 ML IV SCH ×2 (19:15)
[2019-11-30] MEDS ORDERED: fentaNYL 100 MCG/2 ML INJECTION (J3010) IV PRN (19:15)
[2019-11-30] MEDS ORDERED: ONDANSETRON 4MG/2ML VIAL (J2405) IV PRN ×2 (19:15)
[2019-11-30] MEDS ORDERED: HYDROMORPHONE HCL 0.5 MG/ 0.5 ML SYRINGE (J1170 PER 1) IV PRN (19:15)
[2019-11-30] MEDS ORDERED: MORPHINE 2 MG/ML 1ML VIAL (J2270) IV PRN (19:15)
[2019-11-30] MEDS ORDERED: PERCOCET 5MG/325MG TAB PO PRN ×2 (19:15)
[2019-11-30] MEDS ORDERED: PERCOCET 5MG/325MG TAB As Ordered ONE (19:17)
[2019-11-30] MEDS: SIMVASTATIN 20 MG TAB PO SCH (20:49)
[2019-11-30] MEDS: TERAZOSIN 5 MG CAP PO SCH (20:51)
--- NOTE | 2019-11-30 21:32 | IPN ---
DATE: 11/30/2019 CHIEF COMPLAINT: Right lower extremity cellulitis. HISTORY OF PRESENT ILLNESS: This man presented with right lower extremity swelling. We sent away an aspiration of his knee. He is still on intravenous (IV) antibiotics including vancomycin. We received a call the hospitalist who, in conversation with Dr. Cruz, recommended the patient might have prepatellar bursitis as the pain seems getting worse. PHYSICAL EXAMINATION: This is a well-appearing man. He still has quite of swelling in the prepatellar bursa. It is infected. It is not actively draining. Range of motion of the knee is a little bit tight, zero to 90 degrees, but painless for him. There is overlying redness and warmth about the knee and fluctuance in the bursa region. ASSESSMENT AND PLAN: This patient is a 69-year-old man with infected prepatellar bursa. I discussed the pros and cons versus the benefits of obtaining nonsurgical management versus excision of his prepatellar bursa irrigation debridement as well as arthroscopy to irrigate and debride his knee as well at the same time to help in anything that could be causing or contributing to this man's continued infection. The surgical risks include but are not limited to infection, pain, stiffness, bleeding, neurovascular injury, damage to surrounding structures, anesthetic complications, blood clots, and other risk. He wished to go ahead with right knee irrigation and debridement of an infected prepatellar bursa excision, as well as a knee arthroscopy, so he is marked for the right lower extremity. We will keep him nothing by mouth and add him to the OR waiting list for tonight or tomorrow morning, hopefully. We gave this to the staff as well as to the operating theater.
--- NOTE | 2019-11-30 23:53 | RO ---
DATE OF PROCEDURE: 11/30/2019 PREOPERATIVE DIAGNOSIS: Right knee infected prepatellar bursitis. POSTOPERATIVE DIAGNOSIS: Right knee infected prepatellar bursitis plus medial and lateral meniscus degenerative tears. PLANNED PROCEDURE: Right knee arthroscopy, irrigation and debridement, and excision of prepatellar bursa. PROCEDURE PERFORMED: Right knee arthroscopy, irrigation and debridement, and excision of prepatellar bursa. Plus partial medial and lateral meniscectomies. SURGEON: Paul Jack MD PARAPROFESSIONAL AIDE: DIRECTOR MARKET RESEARCH: Dr. Robertson TYPE OF ANESTHETIC: General anesthetic. OPERATIVE PREAMBLE: This 69-year-old man had an infected prepatellar bursitis. This was improving quite slowly with antibiotics, so the decision was made to go ahead with irrigation, debridement, excision of prepatellar bursa as well as arthroscopy to rule out intraarticular infection. We talked about the pros and cons, the risks and benefits of nonsurgical management versus going ahead with surgery. We discussed the specific surgical risks, which include, but are not limited to, infection, pain, stiffness, bleeding, neurovascular injury, damage to surrounding structures, need for further surgery, anesthetic complications, blood clots, , and others risks. He wished to go ahead. I marked the right lower extremity and proceeded to surgery. DESCRIPTION OF PROCEDURE: The patient was brought to the operating theater. He was placed supine on the operating room table. Tourniquet was applied to the right thigh. Stress positioner was used. All bony prominences were positioned. The patient was already on antibiotics within an hour of the case. General anesthesia was induced. Limb was prepped and draped in the usual sterile fashion allowing over 3 minutes prep solution drying time. Preoperative time-out was performed confirming the site, the patient, and the surgery. We began by elevating the leg, inflating the tourniquet to 250 mmHg. Made a small 1-inch incision centered over the anterior aspect of the knee over the patellar tendon proximally, longitudinally over the anterior aspect the knee. Carried dissection down through skin and subcutaneous tissue. Then, there was some small amount of white purulent fluid that came out. Then, used a curved hemostat around laterally, and there was another pocket of fluid that came out. I then excised the entire bursa using this hemostat, as well as thoroughly irrigating the bursal area to ensure that no other small pockets of pus were found. I thoroughly irrigated this part as well as removed any kind of loose soft tissue and infected tissue as well. I then inserted the arthroscope into the intra-articular space of the knee through a standard high anterolateral portal. The entire intra-articular examination of the knee was performed and pictures were taken and saved onto the arthroscopy system. Patellofemoral joint had grade 2 to 3 changes on the undersurface of the patella as well as 1 to 2 changes on the trochlear groove. There was already some osteophyte forming on the far medial side of the trochlea. Medial and lateral gutters were entered. There was no obvious loose body. There was no obvious intra-articular infection. Knee was placed into valgus force. Scope was driven into the medial compartment. Inside-out spinal needle localization was then confirmed to perform a medial portal. Shaver was introduced. There was grade 2 to 3 changes on the medial femoral condyle and grade 1 to 2 changes on the medial tibial plateau. There was degenerative meniscus fraying, inner surface fraying, as well as a small radial flap tear near the posterior horn, but the roots were stable anteriorly and posteriorly. These were debrided. There was then some ligamentum mucosum as well as some wavy fibers along the course of the anterior cruciate ligament (ACL) that were debrided, but the ACL and posterior cruciate ligament (PCL) appears stable and solid and normal overall. He was then placed in [id number], scope driven into the lateral compartment. The lateral compartment very minimal softening of the cartilage, grade 1 changes at the most. Lateral meniscus appeared fairly normal, although there was, again, in the mid aspect, a small radial flap degenerative-type tear that was debrided down to smooth and stable margins. The knee was thoroughly irrigated and the scope withdrawn. The wound was thoroughly cleaned followed by subcutaneous closure of the anterior longitudinal midline small incision with two interrupted #2-0 Vicryl sutures, buried deep, and then horizontal mattress #3-0 Ethilon suture, as well as one stitch in each arthroscopy portal, again #3-0 Ethilon sutures. Adaptic, 4 x 8 gauze, as well as ABD dressing was then placed for wound dressings and then overwrapped with a 6-inch Dat bandage. The tourniquet was taken down, the patient transferred off the operating table, and taken to the postanesthetic care unit in stable condition. All sponge, needle, and instrument counts were correct. Estimated blood loss: 20 mL. PLAN: The patient will be weightbearing as tolerated, range of motion as tolerated. Change dressing in 2 days, discontinue the sutures in 2 weeks. Followup on sensitivities to determine antibiotic management and be discharged home hopefully Tuesday or in the next 2-3 days. We will follow along with the CRP and ESR as well to determine appropriate response to the antibiotic therapy.
[2019-12-01 00:30] VITALS: BP 119/61
[2019-12-01 02:00] VITALS: BP 111/56
[2019-12-01] MEDS: NAFCILLIN SOD 2 GM in D5W MINI-BAG PLUS 50 ML IV SCH ×4 (04:59→22:12)
[2019-12-01 06:00] VITALS: BP 130/66
[2019-12-01 06:50] LABS: HEMATOCRIT 34.2 % (42.0-52.0); HEMOGLOBIN 11.3 g/dl (13.5-17.5); MEAN CORPUSCULAR HEMOGLOBIN 31.3 pg (27.0-33.0); MEAN CORPUSCULAR VOLUME 94.7 fl (80.0-96.0); PLATELET COUNT, AUTOMATED 260 10^3/uL (150-450); RED BLOOD COUNT 3.61 10^6/uL (4.30-6.10); WHITE BLOOD COUNT 10.8 10^3/uL (4.0-10.0)
[2019-12-01 07:13] LABS: BLOOD UREA NITROGEN 12 MG/DL (7-18); CALCIUM LEVEL 8.8 MG/DL (8.8-10.2); CARBON DIOXIDE LEVEL 29 MEQ/L (21-32); CHLORIDE LEVEL 101 MEQ/L (98-107); CREATININE FOR GFR 0.82 MG/DL (0.70-1.30); GLOMERULAR FILTRATION RATE > 60.0 (>49); GLUCOSE, FASTING 137 MG/DL (70-100); POTASSIUM SERUM 4.2 MEQ/L (3.5-5.1); SODIUM LEVEL 135 MEQ/L (136-145)
--- NOTE | 2019-12-01 07:14 | IPN ---
DATE: 11/30/2019 Patient continues to be febrile, 100.6 maximum temperature (T-max). Status post attempt for incision and drainage yesterday at the bedside with unsuccessful complete drainage. Patient continues to have recurrent fevers despite IV vancomycin. Prior synovial fluid shows Staphylococcus aureus which is sensitive to oxacillin, methicillin-sensitive Staphylococcus aureus (MSSA), vancomycin has been continued and cephazolin discontinued per infectious disease (ID) recommendations. Orthopedics to be re-consulted for drainage. Patient complains of 10/10 pain when he tries to get up and bend the knee, he ambulates better when it is straight, drops down to about 6/10 despite taking two Percocet every 6 hours and IV morphine as needed. Otherwise, he denies any chills. He had one bowel movement today, two soft bowel movements. No diarrhea. VITAL SIGNS: T-max 100.6, pulse 80, respiratory rate 17, blood pressure 124/64, 95% on room air. GENERALLY: Awake, alert, oriented times three, answering questions appropriately. LUNGS: Clear to auscultation. No wheezing, rales or rhonchi. HEART: S1, S2. Sinus rhythm. ABDOMEN: Obese, soft, nontender, nondistended. EXTREMITIES: Right lower extremity has decreasing erythema, still very tender, swelling has decreased slightly but unable to flex and extend at the knee due to severe pain, still with tenderness and edema. Left lower extremity is normal. White count 9.5, hemoglobin 11, hematocrit 33, platelet count 236. Sodium 138, potassium 4.5, chloride 104, bicarbonate 32, BUN 11, creatinine 0.87, glucose of 122, calcium of 8. Staphylococcus aureus on synovial fluid. ASSESSMENT AND PLAN: This is a 69-year-old male with primary progressive multiple sclerosis, sees a neurologist in [place], prediabetic, obese, body mass index (BMI) of 35 with probable obstructive sleep apnea (RHIANNON), dyslipidemia, presented with a 6 day history of right knee swelling, redness, and tenderness, admitted for right lower extremity cellulitis and abscess. IMPRESSION: 1. Methicillin-sensitive Staphylococcus aureus (MSSA) right knee abscess. Patient is on IV vancomycin with recurrent fever with maximum temperature (T-max) of 100.6 over the past 3 days. Per infectious disease, patient should undergo incision and drainage and washout. Orthopedic surgery, Dr. Jack, has been re-consulted. Patient is off anticoagulation. He is currently kept nothing by mouth. Patient's vancomycin has been discontinued. Currently on nafcillin. 2. Hyperlipidemia, on chronic Zocor. 3. Prediabetic, on chronic Neurontin.
--- NOTE | 2019-12-01 07:59 | IPN ---
DATE: 11/30/2019 Mr. Cardenas is not doing much better today. He still has low grade fever of 100.8 and severe knee pain with swelling. Yesterday night around 5:30 we tried to aspirate his bursa and we were able to aspirate about 8 mL. He has no nausea, vomiting or diarrhea. No abdominal pain. No chest pain or shortness of breath. LABORATORY DATA: White count 9.5, hemoglobin 11.3, hematocrit 33.7, platelets 236, sodium 138, potassium nl, bicarbonate 30, creatinine 1.87, calcium 8. Wound culture was positive for MSSA final on 11/28/2019 and 11/29/2019. On physical exam, temperature is 100.5, pulse 80, respirations 17, blood pressure 126/64, oxygen saturation 95% on room air. Heart: Normal. Lungs: Diffuse expiratory wheezes bilaterally. No rales or rhonchi. Abdomen: Soft, nontender. No hepatosplenomegaly. Extremities: Left no edema. Right has +1 ankle edema, suprapatellar bursitis, fluctuant with severe tenderness, erythema. Normal range of motion of the knee. Cellulitis extending from the patellar bursa all the way to the ankle. IMPRESSION: 1. Suprapatellar bursitis with loculated abscess with secondary cellulitis of the right leg. Culture positive for MSSA. The patient switched from IV vancomycin to nafcillin 2 grams IV every 6 hours due to persistent fever of 100.8, I would recommend surgical drainage. The patient not improving after 5 days of appropriate antibiotics. 2. Primary progressive multiple sclerosis, stable. Plan reconsult surgery for I and D. Discontinue IV vancomycin and switch to IV nafcillin 2 grams every 6 hours. [facility]
[2019-12-01] MEDS ORDERED: KETOROLAC 30 MG/ML VIAL (J1885) IV ONE (08:00)
[2019-12-01 09:00] VITALS: BP 127/65
[2019-12-01] MEDS: GABAPENTIN 300 MG CAP PO SCH ×4 (09:41→20:04)
[2019-12-01] MEDS: ENOXAPARIN 40 MG/0.4 ML SYRINGE (J1650) SC SCH (09:44)
[2019-12-01] MEDS: DIMETHICONE 2% OINTMENT(VANIPLY) 70GM TUBE TOP SCH ×2 (09:47→20:07)
[2019-12-01] MEDS: BACLOFEN 10 MG TAB PO SCH ×2 (12:09→20:04)
[2019-12-01] MEDS: OMEPRAZOLE 20 MG CAP PO SCH (12:09)
--- NOTE | 2019-12-01 13:25 | IPN ---
DATE OF SERVICE: 12/01/2019 Patient returned from operating room (OR) yesterday for right prepatellar bursitis debridement and excision of prepatellar bursa. He complains of 10/10 pain when he tries to get up with shooting and throbbing, when he is resting however it drops down 3/10, medications Percocet 2 tablets every 4 work, and he was able to sleep about 5 hours last evening. No fever or chills overnight. Temperature 97.9, pulse 72, respiratory rate 18, blood pressure 130/66, 97% on room air. Generally awake, alert, oriented times three, answering questions appropriately. No cyanosis. No icterus. No jugular venous distention (JVD) or thyromegaly. Lungs are clear to auscultation. No wheezing, rales or rhonchi. Heart: S1, S2, sinus rhythm. Abdomen is obese, soft, nontender and nondistended. Extremities: No cyanosis on the left lower extremity. Right lower extremity has decreasing erythema, edema and currently with a bandaged right knee. Dorsalis pedis, posterior tibialis are noted. White count 10.8, hemoglobin 11, hematocrit 34, platelet count 260. Metabolic panel is still pending. ASSESSMENT AND PLAN: 69-year-old male who presented to the emergency room with 6 day history of erythema, tenderness and swelling of the right lower extremity with a throbbing pain at the right knee admitted for: 1. Right knee prepatellar bursitis, not infected status post debridement and excision of the prepatellar bursa on 11/30/2019 by orthopedic surgery, Dr. Jack. The patient is currently on intravenous nafcillin. Previously had been on IV vancomycin. The patient is continued on IV antibiotics. White count slightly increased today. Without fever or chills. Continue with Percocet and morphine. 2. Obesity with body mass index (BMI) of 35.6 complicated his care. 3. Reflux, on chronic Prilosec. 4. Neuropathy, on gabapentin. 5. Dyslipidemia, on Zocor.
[2019-12-01 13:47] VITALS: BP 134/63
[2019-12-01] MEDS: SIMVASTATIN 20 MG TAB PO SCH (20:04)
[2019-12-01] MEDS: TERAZOSIN 5 MG CAP PO SCH (20:04)
[2019-12-01] MEDS: NAPROXEN 250 MG TAB PO PRN (20:05)
[2019-12-01 22:00] VITALS: BP 134/63
[2019-12-02] MEDS: NAFCILLIN SOD 2 GM in D5W MINI-BAG PLUS 50 ML IV SCH ×4 (05:04→23:44)
[2019-12-02 06:00] VITALS: BP 124/64
[2019-12-02 07:00] LABS: HEMATOCRIT 33.5 % (42.0-52.0); MEAN CORPUSCULAR HEMOGLOBIN 31.5 pg (27.0-33.0); MEAN CORPUSCULAR HGB CONC 32.8 g/dl (32.0-36.5); PLATELET COUNT, AUTOMATED 260 10^3/uL (150-450); RED BLOOD COUNT 3.49 10^6/uL (4.30-6.10); WHITE BLOOD COUNT 7.9 10^3/uL (4.0-10.0)
[2019-12-02 07:17] LABS: BLOOD UREA NITROGEN 14 MG/DL (7-18); C REACTIVE PROTEIN QUANTITATIV 9.66 MG/DL (0.00-0.30); CALCIUM LEVEL 8.6 MG/DL (8.8-10.2); CARBON DIOXIDE LEVEL 30 MEQ/L (21-32); CHLORIDE LEVEL 103 MEQ/L (98-107); CREATININE FOR GFR 0.92 MG/DL (0.70-1.30); GLOMERULAR FILTRATION RATE > 60.0 (>49); GLUCOSE, FASTING 119 MG/DL (70-100); POTASSIUM SERUM 4.3 MEQ/L (3.5-5.1); SODIUM LEVEL 138 MEQ/L (136-145)
[2019-12-02 07:32] LABS: ERYTHROCYTE SEDIMENTATION RATE 83 mm/hr (0-20)
[2019-12-02] MEDS: ENOXAPARIN 40 MG/0.4 ML SYRINGE (J1650) SC SCH (08:30)
[2019-12-02] MEDS: NAPROXEN 250 MG TAB PO PRN ×2 (08:31→20:33)
[2019-12-02] MEDS: GABAPENTIN 300 MG CAP PO SCH ×4 (08:31→20:30)
[2019-12-02] MEDS: DIMETHICONE 2% OINTMENT(VANIPLY) 70GM TUBE TOP SCH ×2 (08:32→20:32)
[2019-12-02] MEDS ORDERED: KETOROLAC 30 MG/ML VIAL (J1885) IV ONE (09:45)
[2019-12-02] MEDS: BACLOFEN 10 MG TAB PO SCH ×2 (11:34→20:31)
[2019-12-02] MEDS: OMEPRAZOLE 20 MG CAP PO SCH (11:34)
[2019-12-02 14:00] VITALS: BP 122/66
[2019-12-02] MEDS: TERAZOSIN 5 MG CAP PO SCH (20:31)
[2019-12-02] MEDS: SIMVASTATIN 20 MG TAB PO SCH (20:31)
--- NOTE | 2019-12-02 21:39 | IPN ---
DATE: 12/02/2019 Patient continues to be febrile with maximum temperature (T-max) of 100.6. Pain is much improved currently at 0/10 when he is resting, about 4-5/10 when he is ambulating. He cleared physical therapy, was able to ambulate well around the floor. Lower extremity erythema has resolved. Temperature 98, T-max 100.6, pulse 72, respiratory rate 18, blood pressure 124/64, 94% on room air. GENERAL: Awake, alert, oriented times three, answering questions appropriately. LUNGS: Clear to auscultation. No wheezing, rales or rhonchi. HEART: S1, S2. Sinus rhythm. ABDOMEN: Soft, nontender, nondistended. Positive bowel sounds. EXTREMITIES: No erythema of the right lower extremity. Swelling is decreased. Patient has improved range of motion of the right knee. LABORATORY DATA: Imaging studies and microbiology have been reviewed. ASSESSMENT AND PLAN: 1. A 69-year-old male with right knee prepatellar abscess status post debridement and excision of prepatellar bursa on 11/30/2019, still on intravenous (IV) nebulizers. White count is back to normal. Has T-max of 100.6. Continue with Percocet, morphine and given Naprosyn this morning. 2. Obesity. Body mass index (BMI) complicating his care. 3. . On Percocet. 4. Neuropathy. On gabapentin. 5. Dyslipidemia. On simvastatin.
[2019-12-02 22:00] VITALS: BP 136/72
[2019-12-03] MEDS: NAFCILLIN SOD 2 GM in D5W MINI-BAG PLUS 50 ML IV SCH ×3 (05:27→16:34)
[2019-12-03 06:00] VITALS: BP 132/71
[2019-12-03 06:08] LABS: HEMATOCRIT 35.5 % (42.0-52.0); HEMOGLOBIN 11.7 g/dl (13.5-17.5); MEAN CORPUSCULAR HEMOGLOBIN 31.4 pg (27.0-33.0); MEAN CORPUSCULAR VOLUME 95.2 fl (80.0-96.0); PLATELET COUNT, AUTOMATED 293 10^3/uL (150-450); RED BLOOD COUNT 3.73 10^6/uL (4.30-6.10); WHITE BLOOD COUNT 8.4 10^3/uL (4.0-10.0)
[2019-12-03 06:32] LABS: BLOOD UREA NITROGEN 17 MG/DL (7-18); C REACTIVE PROTEIN QUANTITATIV 9.38 MG/DL (0.00-0.30); CALCIUM LEVEL 9.2 MG/DL (8.8-10.2); CARBON DIOXIDE LEVEL 30 MEQ/L (21-32); CHLORIDE LEVEL 104 MEQ/L (98-107); CREATININE FOR GFR 0.87 MG/DL (0.70-1.30); GLOMERULAR FILTRATION RATE > 60.0 (>49); GLUCOSE, FASTING 110 MG/DL (70-100); POTASSIUM SERUM 4.1 MEQ/L (3.5-5.1); SODIUM LEVEL 138 MEQ/L (136-145)
[2019-12-03 06:40] LABS: ERYTHROCYTE SEDIMENTATION RATE 70 mm/hr (0-20)
--- NOTE | 2019-12-03 07:20 | IPN ---
DATE: 12/02/2019 CHIEF COMPLAINT: Postoperative day two right knee prepatellar bursitis irrigation and debridement, arthroscopy, partial medial and partial lateral meniscectomies. HISTORY OF PRESENT ILLNESS: This is a 69-year-old man who presented with a progressive cellulitis of his lower extremity as well as worsening of his infected prepatellar bursitis so we went ahead and did an irrigation and debridement. Also checked his knee with an arthroscopy. There are no obvious signs of infection there, but he did have some moderate osteoarthritis in his medial compartment that I debrided as well as small medial and lateral meniscus tears that I also debrided. I performed partial medial and lateral meniscectomies. He is doing quite well with no symptoms on the serrano. Pain is settling down. PHYSICAL EXAMINATION: He is a well appearing 69-year-old man who appears quite satisfied when I remove the dressing. It feels a lot better for him. He appears afebrile. He is alert and oriented times three. He is laying supine in bed. He looks comfortable. Incisions are well apposed and free of drainage, swelling or redness. No obvious knee effusion. Range of motion is well maintained 0 to 90 degrees. , dorsiflex, the foot. Foot is well perfused. ASSESSMENT AND PLAN: This 69-year-old will man will likely be kept in the hospital at least one more day to follow the cultures and for Dr. Cruz the infectious disease specialist to decide on his outpatient step down progression for his antibiotics, but from my perspective he is safe to be discharged home from the perspective of the surgery and followup in the office in two weeks time to check the wound and discontinue the sutures. He will have to follow up with one of the physician assistants at the [facility] group as I am away starting on 12/09/2019. He is weight bearing as tolerated. Range of motion as tolerated. We will place a small Optifoam dressing overlying his incisions.
[2019-12-03] MEDS ORDERED: NAPR250T4 PO (07:36)
[2019-12-03 07:52] VITALS: BP 127/70
[2019-12-03] MEDS: ENOXAPARIN 40 MG/0.4 ML SYRINGE (J1650) SC SCH (08:49)
[2019-12-03] MEDS: NAPROXEN 250 MG TAB PO PRN ×2 (08:49→21:17)
[2019-12-03] MEDS: GABAPENTIN 300 MG CAP PO SCH ×4 (08:49→21:17)
[2019-12-03] MEDS: DIMETHICONE 2% OINTMENT(VANIPLY) 70GM TUBE TOP SCH ×2 (09:00→21:18)
[2019-12-03] MEDS: BACLOFEN 10 MG TAB PO SCH ×2 (11:34→21:16)
[2019-12-03] MEDS: OMEPRAZOLE 20 MG CAP PO SCH (11:34)
[2019-12-03 14:00] VITALS: BP 131/64
--- NOTE | 2019-12-03 14:12 | IPNPDOC ---
Date Seen The patient was seen on 12/03/19. Progress Note SUBJECTIVE: afebrile. pain is tolerable 3/10 when supine. 5/10 with ambulation but decreases with naproxen. passed hse no chills. at home can assist any immediate needs. no other issues per RN overnight. OBJECTIVE: PHYSICAL EXAMINATION: VITALS: PLS SEE BELOW GENERAL: Awake, alert, oriented times three, answering questions appropriately. LUNGS: Clear to auscultation. No wheezing, rales or rhonchi. HEART: S1, S2. Sinus rhythm. ABDOMEN: Soft, nontender, nondistended. Positive bowel sounds. EXTREMITIES: No erythema of the right lower extremity. Swelling is decreased. Patient has improved range of motion of the right knee. LABORATORY DATA: Imaging studies and microbiology have been reviewed. ASSESSMENT AND PLAN: A 69-year-old male with right knee prepatellar abscess status post debridement and excision of prepatellar bursa on 11/30/2019, still on intravenous (IV) NAFCILLIN. White count is back to normal. 1.Prepatellar bursitis/abscess s/p incision and debridement of the bursa. s/p iv vanco iv cefazolin. no on iv nafcillin for mssa. Continue Naprosyn this morning for pain control.passed hse. await ID recommendations for outpt abx choice and total duration. pt has equipment such has cane, walker, shower chair at home for his multiple sclerosis. 2. Obesity. Body mass index (BMI) complicating his care. 3. Multiple sclerosis, no acute exacerbation. sees a neurologist in [place]. 4. Neuropathy. On gabapentin. 5. Dyslipidemia. On simvastatin. disposition: ok to [place] home if ok with ID. await abx and duration of treatment. VS, I&O, 24H, Fishbone Vital Signs/I&O Vital Signs Date Time Temp Pulse Resp B/P (MAP) Pulse Ox O2 Delivery O2 Flow Rate FiO2 12/03/19 07:52 98.1 78 12 127/70 (89) 98 Room Air 11/30/19 19:30 2 I&O- Last 24 Hours up to 6 AM 12/03/19 06:00 Intake Total 2170 ml Output Total 1800 ml Balance 370 ml Laboratory Data 24H LABS Laboratory Tests 2 12/03/19 05:18: Nucleated Red Blood Cells % (auto) 0.0, Erythrocyte Sedimentation Rate 70H, Anion Gap 4L, Glomerular Filtration Rate > 60.0, Calcium Level 9.2, C-Reactive Protein, Quantitative 9.38H CBC/BMP Laboratory Tests 12/03/19 05:18 Microbiology Microbiology 11/29/19 Anaerobic Culture - Final, Complete 11/29/19 Gram Stain - Final, Complete 11/29/19 Body Fluid Culture - Final, Complete Staphylococcus Aureus 11/28/19 Gram Stain - Final, Complete 11/28/19 Body Fluid Culture - Final, Complete Staphylococcus Aureus RYAN BALBUENA MD Dec 03, 2019 14:12
[2019-12-03] MEDS: ACETAMINOPHEN TAB 650MG DOSE (2X325MG) PO PRN (14:45)
[2019-12-03] MEDS ORDERED: KEFL500C17 PO ×2 (17:11→17:21)
--- NOTE | 2019-12-03 18:07 | IPN ---
DATE: 12/03/2019 INFECTIOUS DISEASE PROGRESS NOTE Mr. Cardenas was examined at bedside. He feels well and has been afebrile. No complaints today. His maximum temperature (T max) in the last 24 hours has been 99.4. He continues on IV nafcillin, which appears to have infiltrated in his left forearm, tolerating oral intake. Denies any chest pain, shortness of breath, fevers, chills, nausea, vomiting. LABS: WBC 8.4, hemoglobin and hematocrit 11.7 and 35.5, platelets 293, ESR down from 83 to 70. Sodium and potassium 138 and 4.1, BUN and creatinine 17 and 0.87, CRP essentially unchanged from yesterday 9.66 yesterday to 9.38 today. PHYSICAL EXAM: Temperature 99.2, pulse 73, respirations 20, blood pressure 131/64, mean arterial pressure (MAP) 86, pulse oximetry 97% on room air. Resting comfortably in bed, in no acute distress. Fully alert and oriented. Heart: Regular rate and rhythm without any appreciable murmurs. Lungs are clear without any wheezing, rhonchi, or rales. Abdomen: Soft, nontender, nondistended. Extremities: Able to move all limbs. No edema in the left lower extremity. There is 1+ edema in the right lower extremity, which is elevated on a pillow with tenderness at the knee. Right knee swollen more than the left and erythematous with now what appears to be new yellow-pale discoloration and tightness in the right lateral knee. Range of motion unchanged from prior days. ASSESSMENT AND PLAN: 1. Suprapatellar bursitis with loculated abscess with secondary cellulitis of the right leg. 2. Left arm thrombophlebitis with infiltrated IV infusing nafcillin. 3. Primary progressive multiple sclerosis. PLAN: Mr. Cardenas is improving. However, given his skin tautness on the right lateral knee, recommend monitoring overnight and trend his inflammatory markers and CBC into tomorrow morning. Monitor for any fevers. Elevate and apply warm compress to the left forearm. Discussed with nursing to remove the IV and will stop nafcillin, switch over to oral Keflex starting today - recommend 14 days of this at 500 mg four times a day. Script has been sent in to his preferred pharmacy at [facility] and hopefully this can be approved. If all goes well into tomorrow, he may be discharged as per orthopedics (ortho). ZARINA
[2019-12-03 21:16] VITALS: BP 129/63
[2019-12-03] MEDS: CEPHALEXIN 500 MG CAP PO SCH (21:16)
[2019-12-03] MEDS: TERAZOSIN 5 MG CAP PO SCH (21:16)
[2019-12-03] MEDS: SIMVASTATIN 20 MG TAB PO SCH (21:16)
[2019-12-03 22:00] VITALS: BP 129/63
--- NOTE | 2019-12-03 22:14 | RO ---
DATE OF PROCEDURE: 11/29/2019 PREPROCEDURE DIAGNOSIS:Right Septic Knee Joint POSTPROCEDURE DIAGNOSIS:Right Septic Knee Joint PROCEDURE: Right Joint aspiration for microbiology and pain relief SURGEON/PROCEDURE PERFORMED BY: Dr. Elma Corbett ATTENDING ON THE CASE: Dr. Thelma Cruz CONSENT: Consent for anesthesia, risks and benefits were discussed with the patient, and a written consent was obtained. DESCRIPTION OF PROCEDURE: The right knee was prepped, anesthesia 3 mL of 1% lidocaine was used. Site was prepped and prepared in a sterile fashion. Wheal of lidocaine was placed. Using an ultrasound, lidocaine was then introduced into the joint space. Fluid was removed from the joint space and samples were sent for lab analysis. Fluid color was bloody and purulent, and about 8 mL of fluid was removed. Estimated blood loss was minimal. The patient tolerated the procedure well without any complications. ZARINA
[2019-12-04 06:00] VITALS: BP 118/62
[2019-12-04 06:12] LABS: HEMOGLOBIN 11.6 g/dl (13.5-17.5); MEAN CORPUSCULAR HEMOGLOBIN 31.8 pg (27.0-33.0); MEAN CORPUSCULAR HGB CONC 33.1 g/dl (32.0-36.5); MEAN CORPUSCULAR VOLUME 95.9 fl (80.0-96.0); PLATELET COUNT, AUTOMATED 321 10^3/uL (150-450); RED BLOOD COUNT 3.65 10^6/uL (4.30-6.10); WHITE BLOOD COUNT 8.2 10^3/uL (4.0-10.0)
[2019-12-04 06:41] LABS: BLOOD UREA NITROGEN 18 MG/DL (7-18); C REACTIVE PROTEIN QUANTITATIV 7.18 MG/DL (0.00-0.30); CALCIUM LEVEL 9.2 MG/DL (8.8-10.2); CARBON DIOXIDE LEVEL 28 MEQ/L (21-32); CHLORIDE LEVEL 104 MEQ/L (98-107); CREATININE FOR GFR 0.86 MG/DL (0.70-1.30); GLOMERULAR FILTRATION RATE > 60.0 (>49); GLUCOSE, FASTING 113 MG/DL (70-100); POTASSIUM SERUM 4.2 MEQ/L (3.5-5.1); SODIUM LEVEL 136 MEQ/L (136-145)
[2019-12-04 06:55] LABS: ERYTHROCYTE SEDIMENTATION RATE 71 mm/hr (0-20)
[2019-12-04] MEDS: GABAPENTIN 300 MG CAP PO SCH (07:43)
[2019-12-04] MEDS: ENOXAPARIN 40 MG/0.4 ML SYRINGE (J1650) SC SCH (07:44)
[2019-12-04] MEDS: NAPROXEN 250 MG TAB PO PRN (07:44)
[2019-12-04] MEDS: CEPHALEXIN 500 MG CAP PO SCH (07:44)
[2019-12-04] MEDS: DIMETHICONE 2% OINTMENT(VANIPLY) 70GM TUBE TOP SCH (07:45)
--- NOTE | 2019-12-12 11:02 | DS.PDOC ---
Discharge Summary General Date of Admission Nov 26, 2019 at 18:22 Date of Discharge 12/03/19 Discharge Summary DISCHARGE DIAGNOSES Suprapatellar bursitis with loculated abscess with secondary cellulitis of the right lower extremity Left arm thrombophlebitis with infiltrated IV infusing nafcillin. Primary progressive multiple sclerosis. Obesity BMI 35.6 Hypertension DISCHARGE MEDICATIONS: PLS SEE BELOW DISCHARGE INSTRUCTIONS: pcp, ortho, ID fu in 1-2 wks return to er if recurrent or worsening symptoms [facility] PEREZ INFECTIOUS DISEASE DR CRUZ PROCEDURES: DATE OF PROCEDURE: 11/30/2019 DR PEREZ : Right knee arthroscopy, irrigation and debridement, and excision of prepatellar bursa. Plus partial medial and lateral meniscectomies. DATE OF PROCEDURE: 11/29/2019 PREPROCEDURE DIAGNOSIS:Right Septic Knee Joint POSTPROCEDURE DIAGNOSIS:Right Septic Knee Joint PROCEDURE: Right Joint aspiration for microbiology and pain relief SURGEON/PROCEDURE PERFORMED BY: Dr. Elma Corbett ATTENDING ON THE CASE: Dr. Thelma Cruz CONSENT: Consent for anesthesia, risks and benefits were discussed with the patient, and a written consent was obtained. DESCRIPTION OF PROCEDURE: The right knee was prepped, anesthesia 3 mL of 1% lidocaine was used. Site was prepped and prepared in a sterile fashion. Wheal of lidocaine was placed. Using an ultrasound, lidocaine was then introduced into the joint space. Fluid was removed from the joint space and samples were sent for lab analysis. Fluid color was bloody and purulent, and about 8 mL of fluid was removed. Estimated blood loss was minimal. The patient tolerated the procedure well without any complications. DD: ELMA BAUMANN DO DO 11/30/19 1120 HOSPITAL COURSE: This is a 69-year-old male with history of primary progressive multiple sclerosis, dyslipidemia and prediabetic, obese, BMI of 35.6, presented with six day history of right knee swelling, redness and edema with difficulty ambulating. admitted for : Right prepatellar bursa abscess and cellulitis. The synovial fluid that was drained from his knee on 11/28/2019: No white blood cells and no red blood cells could be appreciated. So far on the gram-stain of his synovial fluid, there are many white blood cells and few gram-positive cocci in pairs. right knee effusion s/p debridement by ortho. initially treated with ceftriaxone and vancomycin on admission, and per ID recommendations, ceftriaxone was discontinued. Due to culture showing MSSA, iv vanco was discontinued and pt was placed on iv nafcillin with infiltration at the IV site and thrombophlebitis.Incision and Drainage attempted by Dr. Trevino at the bedside on 11/29/19 with little fluid drained. On 11/30/19.He then underwent Right knee arthroscopy, irrigation and debridement, and excision of prepatellar bursa. Plus partial medial and lateral meniscectomies. by orthopedic surgery with significant improvement in the edema and tenderness. He subsequently passed physical therapy for home safety, was discharged on oral cephalexin. He was afebrile, with normal white count and crp decreased from 20 on admission to 7 on discharge. Primary progressive multiple sclerosis. Currently without any acute weakness. Patient follows with a neurologist in [place] every 6 months has refused steroid treatments in the past. Dyslipidemia. Resumed on his home dose of Zocor 20 mg at bedtime. Chronic neuropathy. On Neurontin. Prediabetic. outpt fu and weight loss . DISCHARGE PHYSICAL EXAMINATION VITALS: PLS SEE BELOW GENERAL: Awake, alert, oriented times three, answering questions appropriately. LUNGS: Clear to auscultation. No wheezing, rales or rhonchi. HEART: S1, S2. Sinus rhythm. ABDOMEN: Soft, nontender, nondistended. Positive bowel sounds. EXTREMITIES: No erythema of the right lower extremity. Swelling is decreased. Patient has improved range of motion of the right knee. DISCHARGE LABS, MICROBIOLOGY, IMAGING STUDIES: PLS SEE BELOW Right lower extremity Duplex Doppler venous ultrasound: Real time compression and duplex Doppler interrogation of the right lower extremity deep venous system is performed. The right common femoral, superficial femoral and popliteal veins are fully compressible with transducer pressure and demonstrate normal spontaneous and phasic flow, without evidence of deep venous thrombosis. Impression: No evidence of deep venous thrombosis of the right lower extremity femoral popliteal venous system. Electronically Signed by Ranjith Lugo MD 11/26/2019 04:22 P DD: Ranjith Lugo MD, MD 11/26/191621 DT: Griselda 11/26/19 162 DS: TEE 11/26/19 16211/26/19 162 Right knee series: Five views. History: Right knee pain. Findings: Five views of the right knee demonstrate marked swelling in the prepatellar soft tissues, question prepatellar bursitis. There is moderate three compartment osteoarthritis with patellofemoral narrowing and spur formation as well as medial and lateral compartment spur formation. There is an ossific density posterolaterally which may be a fabella. Lateral film however suggests an anterior loose body. No evidence of joint effusion. No fracture is seen. Impression: Marked prepatellar soft tissue swelling, question bursitis. Three compartment osteoarthritis. Possible loose bodies. Electronically Signed by Thomas Odonnell MD 11/26/2019 08:15 P DD: Thomas Odonnell MD 11/26/191954 DT: SRINIVAS 11/26/192003 DS: SUMIT 11/26/19201411/26/192014 TIME SPENT ON DISCHARGE: 30MINUTES. Vital Signs/I&Os Vital Signs Date Time Temp Pulse Resp B/P (MAP) Pulse Ox O2 Delivery O2 Flow Rate FiO2 12/04/19 06:00 98.0 62 18 118/62 (80) 96 Room Air 11/30/19 19:30 2 I&O- Last 24 Hours up to 6 AM 12/04/19 05:59 Intake Total 1480 ml Output Total 3975 ml Balance -2495 ml Laboratory Data Labs 24H Laboratory Tests 2 12/04/19 05:38: Nucleated Red Blood Cells % (auto) 0.0, Erythrocyte Sedimentation Rate 71H, Anion Gap 4L, Glomerular Filtration Rate > 60.0, Calcium Level 9.2, C-Reactive Protein, Quantitative 7.18H CBC/BMP Laboratory Tests 12/04/19 05:38 Microbiology Microbiology 11/29/19 Anaerobic Culture - Final, Complete 11/29/19 Gram Stain - Final, Complete 11/29/19 Body Fluid Culture - Final, Complete Staphylococcus Aureus 11/28/19 Gram Stain - Final, Complete 11/28/19 Body Fluid Culture - Final, Complete Staphylococcus Aureus Discharge Medications Scheduled Aspirin (Aspirin EC) 81 Mg Tablet.dr, 81 MG PO DAILY, (Reported) Baclofen (Baclofen) 10 Mg Tablet, 10 MG PO BID, (Reported) TAKES AROUND NOON AND HS Cephalexin (Keflex) 500 Mg Capsule, 500 MG PO QID Cholecalciferol (Vitamin D3) (Vitamin D-400) 10 Mcg Tablet, 400 UNIT PO DAILY, (Reported) Cyanocobalamin (Cyanocobalamin Injection) 1,000 Mcg/1 Ml Vial, 1,000 MCG IM QMONTH, (Reported) DUE TO RECEIVE 11/26/2019 Gabapentin (Gabapentin) 300 Mg Capsule, 600 MG PO QID, (Reported) Glatiramer Acetate (Glatiramer Acetate) 40 Mg/1 Ml Syringe, 40 MG SC 3XW, (Reported) MON, TUE, FRI Magnesium Oxide (Magnesium) 400 Mg Capsule, 400 MG PO DAILY, (Reported) [place]-3 Fatty Acids/Fish Oil (Fish Oil 1,000 mg Capsule) 1 Each Capsule, 1,000 MG PO BID, (Reported) Omeprazole (Omeprazole) 20 Mg Capsule.dr, 20 MG PO DAILY, (Reported) NOON Simvastatin (Simvastatin) 40 Mg Tablet, 20 MG PO QHS, (Reported) Terazosin HCl (Terazosin HCl) 5 Mg Capsule, 5 MG PO QHS, (Reported) Scheduled PRN Naproxen (Naproxen) 250 Mg Tablet, 500 MG PO BIDP PRN for PAIN Allergies Coded Allergies: No Known Allergies (Unverified , 11/26/19) RYAN BALBUENA MD Dec 04, 2019 10:09
== END 2019-12-04 09:40 | disposition home or self-care (01) | DRG 486 ==
LOC: M ED 15:10 → M ED INP 18:22 → ENRESERV 20:37 → M MS5PR 21:50
PROVIDERS: ADMIT Internal Medicine; ATTEND General Practice
PROC: 0S9C3ZX Drainage of Right Knee Joint, Percutaneous Approach, Diagnostic (ICD-10-PCS; 2019-11-28)
PROC: 0S9C3ZX Drainage of Right Knee Joint, Percutaneous Approach, Diagnostic (ICD-10-PCS; 2019-11-29)
PROC: 0MBP0ZZ Excision of Left Knee Bursa and Ligament, Open Approach (ICD-10-PCS; 2019-11-30)
PROC: 0SBC4ZZ Excision of Right Knee Joint, Percutaneous Endoscopic Approach (ICD-10-PCS; principal; 2019-11-30 12:54)
DX: M71.161 Other infective bursitis, right knee (principal); L03.115 Cellulitis of right lower limb; G35 Multiple sclerosis; B95.61 Methicillin susceptible Staphylococcus aureus infection as the cause of diseases classified elsewhere; R73.03 Prediabetes; E53.8 Deficiency of other specified B group vitamins; F17.220 Nicotine dependence, chewing tobacco, uncomplicated; E55.9 Vitamin D deficiency, unspecified; E66.9 Obesity, unspecified; Z68.35 Body mass index [BMI] 35.0-35.9, adult; G62.9 Polyneuropathy, unspecified; K21.9 Gastro-esophageal reflux disease without esophagitis; N40.0 Benign prostatic hyperplasia without lower urinary tract symptoms; D64.9 Anemia, unspecified; M23.251 Derangement of posterior horn of lateral meniscus due to old tear or injury, right knee; M23.231 Derangement of other medial meniscus due to old tear or injury, right knee; Z79.82 Long term (current) use of aspirin; Z79.899 Other long term (current) drug therapy

== ENCOUNTER 2019-12-14 11:19 | Emergency (ER) | payer MEDICARE, OTHER ==
[~2019-12-14] VITALS: Ht 182.9 cm; Wt 113.6 kg
[~2019-12-14 11:19] MED LIST: ASPI81TA26 PO; BACL10TA2 PO; CYAN1000VL IM; D-40TAB2 PO; FISH1000 PO; GABA-843 PO; GLAT40IN SC; KEFL500C17 PO; MAGN400C2 PO; NAPR250T4 PO; OMEP1CAP73 PO; SIMV40TA20 PO; TERA5CAP3 PO
[2019-12-14 12:05] LABS: BASO % 0.5 % (0.0-1.0); EOS # 0.2 10^3/uL (0.0-0.5); EOS % 2.7 % (0.0-3.0); HEMATOCRIT 36.5 % (42.0-52.0); HEMOGLOBIN 12.3 g/dl (13.5-17.5); LYMPH # 0.9 10^3/uL (1.5-5.0); LYMPH % 16.3 % (24.0-44.0); MEAN CORPUSCULAR HEMOGLOBIN 31.4 pg (27.0-33.0); MEAN CORPUSCULAR HGB CONC 33.7 g/dl (32.0-36.5); MEAN CORPUSCULAR VOLUME 93.1 fl (80.0-96.0); MONO # 0.4 10^3/uL (0.0-0.8); MONO % 7.2 % (0.0-5.0); NEUTROPHILS # 4.1 10^3/uL (1.5-8.5); NEUTROPHILS % 72.9 % (36.0-66.0); PLATELET COUNT, AUTOMATED 250 10^3/uL (150-450); RED BLOOD COUNT 3.92 10^6/uL (4.30-6.10); WHITE BLOOD COUNT 5.6 10^3/uL (4.0-10.0)
[2019-12-14 12:20] LABS: BLOOD UREA NITROGEN 23 MG/DL (7-18); CALCIUM LEVEL 9.5 MG/DL (8.8-10.2); CARBON DIOXIDE LEVEL 27 MEQ/L (21-32); CHLORIDE LEVEL 105 MEQ/L (98-107); CK-MB VALUE MASS 3.9 NG/ML (<3.6); CPK CREATINE PHOSPHOKINASE 178 U/L (39-308); CREATININE FOR GFR 0.93 MG/DL (0.70-1.30); GLOMERULAR FILTRATION RATE > 60.0 (>49); GLUCOSE, FASTING 149 MG/DL (70-100); MB/CK RELATIVE INDEX 2.19 (< OR =4); POTASSIUM SERUM 4.3 MEQ/L (3.5-5.1); SODIUM LEVEL 136 MEQ/L (136-145); TROPONIN I 0.13 NG/ML (< 0.10)
--- NOTE | 2019-12-14 13:05 | REP ---
Chest x-ray: Two views. History: Syncope. No comparison study. Findings: EKG electrodes are seen. There is evidence of a hiatal hernia behind the heart. Heart is not enlarged. The lungs are well inflated and clear. Pleural angles are sharp. There are degenerative changes in the thoracic spine. Pulmonary vasculature is not increased. Impression: Moderate size hiatal hernia behind the heart. Otherwise no acute disease. Electronically Signed by Thomas Odonnell MD 12/14/2019 12:57 P
[2019-12-14 15:43] LABS: CK-MB VALUE MASS 3.5 NG/ML (<3.6); MB/CK RELATIVE INDEX 2.2 (< OR =4); TROPONIN I 0.12 NG/ML (< 0.10)
[2019-12-14 16:15] VITALS: BP 155/71
--- NOTE | 2019-12-14 18:43 | ECGEPIP ---
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
--- NOTE | 2019-12-14 18:45 | ECGEPIP ---
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
== END 2019-12-14 16:20 | disposition home or self-care (01) ==
LOC: M ED 11:19
DX: R55 Syncope and collapse (principal); R79.89 Other specified abnormal findings of blood chemistry; I45.89 Other specified conduction disorders; E11.9 Type 2 diabetes mellitus without complications; G35 Multiple sclerosis; K21.9 Gastro-esophageal reflux disease without esophagitis; E78.00 Pure hypercholesterolemia, unspecified; K44.9 Diaphragmatic hernia without obstruction or gangrene; Z79.82 Long term (current) use of aspirin; Z79.84 Long term (current) use of oral hypoglycemic drugs; Z79.899 Other long term (current) drug therapy

== ENCOUNTER 2022-08-14 18:18 | Observation (INO) | payer MEDICARE, OTHER ==
[~2022-08-14] VITALS: Ht 180.3 cm; Wt 113.8 kg
[~2022-08-14 18:18] MED LIST changes: +GABA-282 PO; -GABA-843 PO; +NAPR-849 PO; -NAPR250T4 PO
[2022-08-14 21:35] LABS: BASO % 0.2 % (0.0-1.0); EOS # 0.1 10^3/uL (0.0-0.5); EOS % 0.6 % (0.0-3.0); HEMOGLOBIN 13.8 g/dl (13.5-17.5); LYMPH # 0.6 10^3/uL (1.5-5.0); LYMPH % 5.9 % (24.0-44.0); MEAN CORPUSCULAR HEMOGLOBIN 32.5 pg (27.0-33.0); MEAN CORPUSCULAR HGB CONC 34.5 g/dl (32.0-36.5); MEAN CORPUSCULAR VOLUME 94.1 fl (80.0-96.0); MONO # 0.5 10^3/uL (0.0-0.8); MONO % 4.6 % (2.0-8.0); NEUTROPHILS # 9.6 10^3/uL (1.5-8.5); NEUTROPHILS % 88.4 % (36.0-66.0); PLATELET COUNT, AUTOMATED 186 10^3/uL (150-450); RED BLOOD COUNT 4.25 10^6/uL (4.30-6.10); WHITE BLOOD COUNT 10.8 10^3/uL (4.0-10.0)
[2022-08-14] MEDS ORDERED: LIDOCAINE 1% MDV 20ML VIAL SC ONE (21:35)
[2022-08-14 21:47] LABS: INR 1.02; PARTIAL THROMBOPLASTIN TIME 26.8 SECONDS (24.8-34.2); PROTHROMBIN TIME 13.6 SECONDS (12.5-14.5)
[2022-08-14 21:58] LABS: BLOOD UREA NITROGEN 14 MG/DL (9-23); CALCIUM LEVEL 9.6 MG/DL (8.3-10.6); CARBON DIOXIDE LEVEL 25 MMOL/L (20-31); CHLORIDE LEVEL 105 MMOL/L (98-107); GLOMERULAR FILTRATION RATE > 60.0 (>42); GLUCOSE, FASTING 138 MG/DL (74-106); POTASSIUM SERUM 4.6 MMOL/L (3.5-5.1); SODIUM LEVEL 139 MMOL/L (136-145)
[2022-08-14] MEDS ORDERED: ceFAZolin SOD 1 GM in D5W MINI-BAG PLUS 50 ML IV ONE (22:00)
[2022-08-14] MEDS ORDERED: BOOSTRIX/ADACEL VACCINE (DIPHTH/PERTUSS/ACELL/TETANUS) 0.5ML SYR IM ONE (22:00)
[2022-08-14 22:12] LABS: RSV AMPLIFICATION NEGATIVE (NEGATIVE)
[2022-08-15] VITALS (7 sets, daily range): BP systolic 122–146; BP diastolic 64–86
[2022-08-15] MEDS ORDERED: ROSU40TA4 PO (00:09)
[2022-08-15] MEDS ORDERED: SYMB80INH INH (00:09)
[2022-08-15] MEDS ORDERED: HOME MED LIST COMPLETE! XX SCH (00:10)
[2022-08-15] MEDS ORDERED: ACETAMINOPHEN TAB 650MG DOSE (2X325MG) PO PRN (01:15)
[2022-08-15] MEDS: BACLOFEN 10 MG TAB PO SCH ×3 (02:54→20:19)
[2022-08-15] MEDS: TERAZOSIN 5MG CAPSULE PO SCH ×2 (02:54→20:19)
[2022-08-15] MEDS ORDERED: HYDROMORPHONE HCL 0.5 MG/ 0.5 ML SYRINGE (J1170 PER 1) IV PRN (05:10)
[2022-08-15] MEDS: SYMBICORT 80/4.5MCG INHALER 6GM INH PRN (07:35)
[2022-08-15] MEDS: OMEPRAZOLE 20MG CAP PO SCH (09:00)
[2022-08-15] MEDS: GABAPENTIN 300 MG CAP PO SCH ×3 (10:53→20:19)
[2022-08-15] MEDS ORDERED: FLUBLOK(EGG FREE)(QUAD)INFLUENZA VACC 0.5ML SYRINGE 18YRS & OLDER IM.IMMUN ONE (12:40)
[2022-08-15] MEDS ORDERED: LIDOCAINE 1% MDV 20ML VIAL As Ordered ONE (17:22)
[2022-08-15] MEDS ORDERED: BACITRACIN OINTMENT 30GM TUBE As Ordered ONE (17:22)
[2022-08-15] MEDS ORDERED: BUPIVACAINE HCL 0.25% 10ML VIAL As Ordered ONE (17:22)
[2022-08-15] MEDS ORDERED: ceFAZolin 2 GM/D5W 50 ML IV BAG As Ordered ONE (17:34)
[2022-08-15] MEDS ORDERED: MIDAZOLAM INJ 2MG/2ML VIAL (J2250 PER 1MG) As Ordered ONE (19:01)
[2022-08-15] MEDS ORDERED: ACETAMINOPHEN 1000MG 100ML IV BAG As Ordered ONE (19:01)
[2022-08-15] MEDS ORDERED: KETOROLAC 60MG 2ML VIAL As Ordered ONE (19:01)
[2022-08-15] MEDS ORDERED: ONDANSETRON 4MG 2ML VIAL As Ordered ONE (19:01)
[2022-08-15] MEDS ORDERED: fentaNYL 250 MCG/5 ML INJECTION As Ordered ONE (19:01)
[2022-08-15] MEDS ORDERED: propofoL 200 MG/20 ML VIAL As Ordered ONE (19:01)
[2022-08-15] MEDS ORDERED: LIDOCAINE 2% 100MG/5ML SDV (FOR ANES.) As Ordered ONE (19:01)
[2022-08-15] MEDS ORDERED: oxyCODONE 5MG TAB PO PRN (19:15)
[2022-08-15] MEDS ORDERED: ONDANSETRON 4MG 2ML VIAL IV PRN (19:15)
[2022-08-15] MEDS ORDERED: LR 1,000 ML IV SCH (19:15)
[2022-08-15] MEDS ORDERED: fentaNYL 100 MCG/2 ML INJECTION IV PRN (19:15)
[2022-08-15] MEDS: HYDROMORPHONE HCL 0.5 MG/ 0.5 ML SYRINGE (J1170 PER 1) IV PRN ×2 (19:24→19:32)
[2022-08-15] MEDS ORDERED: ROSUVASTATIN 10 MG TAB (CRESTOR) PO SCH (21:00)
[2022-08-16 00:20] VITALS: BP 126/72
[2022-08-16] MEDS: ceFAZolin SOD 2 GM in IV 1 EA IV SCH ×3 (01:11→17:02)
[2022-08-16 02:00] VITALS: BP 128/70
[2022-08-16 05:42] VITALS: BP 120/60
[2022-08-16] MEDS: SYMBICORT 80/4.5MCG INHALER 6GM INH PRN (08:54)
[2022-08-16] MEDS ORDERED: FLUBLOK(EGG FREE)(QUAD)INFLUENZA VACC 0.5ML SYRINGE 18YRS & OLDER IM.IMMUN ONE (09:00)
[2022-08-16] MEDS: OMEPRAZOLE 20MG CAP PO SCH (09:17)
[2022-08-16] MEDS: BACLOFEN 10 MG TAB PO SCH (09:18)
[2022-08-16] MEDS: GABAPENTIN 300 MG CAP PO SCH ×2 (09:18→16:09)
[2022-08-16] MEDS ORDERED: CEPH500C PO ×2 (10:48→11:31)
[2022-08-16] MEDS ORDERED: PROBCAP14 PO (11:35)
== END 2022-08-16 18:30 | disposition home or self-care (01) ==
LOC: M ED 18:18 → M ED INP 18:19 → ENRESERV 08-15 08:50 → M MS5PR 08-15 10:36
PROVIDERS: ADMIT Internal Medicine; ATTEND Internal Medicine
DX: S61.411A Laceration without foreign body of right hand, initial encounter (principal); S62.320A Displaced fracture of shaft of second metacarpal bone, right hand, initial encounter for closed fracture; S62.343A Nondisplaced fracture of base of third metacarpal bone, left hand, initial encounter for closed fracture; W23.1XXA Caught, crushed, jammed, or pinched between stationary objects, initial encounter; Y93.29 Activity, other involving ice and snow; Y92.014 Private driveway to single-family (private) house as the place of occurrence of the external cause; G35 Multiple sclerosis; Z86.718 Personal history of other venous thrombosis and embolism; Z79.82 Long term (current) use of aspirin; Z79.899 Other long term (current) drug therapy; Y99.9 Unspecified external cause status; Z23 Encounter for immunization
CPT/HCPCS: 12004; 13132; 73130; 73200; 80048; 85025; 85610; 85730; 87631; 90471; 90682; 90715; 94640; 96365; 96366; 96372; 99285; G0008; G0378; J0131; J0690; J1100; J1170; J1885; J2250; J2405; J3010

== ENCOUNTER → 2022-08-23 | Outpatient (CLI) | payer OTHER ==
[~2022-08-23] MED LIST changes: +CEPH500C PO; +PROBCAP14 PO; +ROSU40TA4 PO; +SYMB80INH INH
== END ==
LOC: M SOG 14:34
PROVIDERS: ATTEND Physician Assistant
DX: Z47.89 Encounter for other orthopedic aftercare (principal); S62.311D Displaced fracture of base of second metacarpal bone, left hand, subsequent encounter for fracture with routine healing; S62.501D Fracture of unspecified phalanx of right thumb, subsequent encounter for fracture with routine healing; S62.621D Displaced fracture of middle phalanx of left index finger, subsequent encounter for fracture with routine healing

== ENCOUNTER → 2022-09-09 | Outpatient (CLI) | payer OTHER | LOC: M SOG 14:05 | PROVIDERS: ATTEND Student in an Organized Health Care Education/Training Program | DX: M25.641 Stiffness of right hand, not elsewhere classified (principal); Z47.89 Encounter for other orthopedic aftercare; S62.521A Displaced fracture of distal phalanx of right thumb, initial encounter for closed fracture; X58.XXXA Exposure to other specified factors, initial encounter; Y92.9 Unspecified place or not applicable; Y93.9 Activity, unspecified; Y99.9 Unspecified external cause status ==

== ENCOUNTER 2023-10-22 20:50 | Inpatient (IN) | payer OTHER ==
[~2023-10-22] VITALS: Ht 177.8 cm; Wt 117.0 kg
[2023-10-22 21:28] LABS: BASO % 0.5 % (0.0-1.0); EOS # 0.2 10^3/uL (0.0-0.5); EOS % 2.9 % (0.0-3.0); HEMATOCRIT 40.8 % (42.0-52.0); HEMOGLOBIN 13.6 g/dl (13.5-17.5); LYMPH % 15.8 % (24.0-44.0); MEAN CORPUSCULAR HEMOGLOBIN 28.6 pg (27.0-33.0); MEAN CORPUSCULAR HGB CONC 33.3 g/dl (32.0-36.5); MEAN CORPUSCULAR VOLUME 85.7 fl (80.0-96.0); MONO # 0.5 10^3/uL (0.0-0.8); MONO % 7.1 % (2.0-8.0); NEUTROPHILS # 4.8 10^3/uL (1.5-8.5); NEUTROPHILS % 73.5 % (36.0-66.0); PLATELET COUNT, AUTOMATED 183 10^3/uL (150-450); RED BLOOD COUNT 4.76 10^6/uL (4.30-6.10); WHITE BLOOD COUNT 6.5 10^3/uL (4.0-10.0)
[2023-10-22 21:47] LABS: LIPASE 32 U/L (12-53)
[2023-10-22] MEDS ORDERED: ONDANSETRON 4MG 2ML VIAL IV ONE (21:55)
[2023-10-22 22:04] LABS: ALBUMIN 3.9 G/DL (3.2-5.2); ALKALINE PHOSPHATASE 110 U/L (46-116); ALT/SGPT 46 U/L (7.0-40); AST/SGOT 45 U/L (<34); BILIRUBIN,DIRECT < 0.1 MG/DL (<0.4); BILIRUBIN,TOTAL 0.4 MG/DL (0.3-1.2); BLOOD UREA NITROGEN 18 MG/DL (9-23); CARBON DIOXIDE LEVEL 24 MMOL/L (20-31); CHLORIDE LEVEL 107 MMOL/L (98-107); CPK CREATINE PHOSPHOKINASE 1249 U/L (46-171); CREATININE FOR GFR 0.83 MG/DL (0.70-1.30); GLOMERULAR FILTRATION RATE > 60.0 (>42); GLUCOSE, FASTING 168 MG/DL (74-106); POTASSIUM SERUM 4.1 MMOL/L (3.5-5.1); SODIUM LEVEL 138 MMOL/L (136-145); TOTAL PROTEIN 6.8 G/DL (5.7-8.2)
[2023-10-22] MEDS ORDERED: ISOVUE-370 76% 100ML VIAL As Ordered ONE (22:10)
[2023-10-22 22:57] LABS: CK-MB VALUE MASS 13.6 NG/ML (<3.6)
[2023-10-22 22:58] LABS: MB/CK RELATIVE INDEX 1.14 (< OR =4)
[2023-10-23 00:59] LABS: CK-MB VALUE MASS 12.7 NG/ML (<3.6)
[2023-10-23 01:00] LABS: MB/CK RELATIVE INDEX 1.13 (< OR =4)
[2023-10-23] MEDS ORDERED: NS 500 ML IV ONE (02:20)
[2023-10-23] MEDS ORDERED: GLUCOSE 4GM CHEW TABLET PO PRN (04:05)
[2023-10-23] MEDS ORDERED: NITROGLYCERIN 0.4MG SUBL TABLET SL PRN (04:05)
[2023-10-23] MEDS ORDERED: GLUCAGON INJ 1MG VIAL SC PRN (04:05)
[2023-10-23] MEDS ORDERED: ACETAMINOPHEN TAB 650MG DOSE (2X325MG) PO PRN (04:05)
[2023-10-23] MEDS ORDERED: ALBUTEROL SULFATE 2.5MG/0.5ML INH NEB SOLN NEB PRN (04:05)
[2023-10-23] MEDS ORDERED: HYDROMORPHONE HCL 0.5 MG/ 0.5 ML SYRINGE IV PRN (04:05)
[2023-10-23] MEDS ORDERED: DEXTROSE 50% 50ML SYRINGE IV PRN (04:05)
[2023-10-23] MEDS ORDERED: METO25TA4 PO (04:28)
[2023-10-23] MEDS ORDERED: FLUT1BLS2 IH (04:28)
[2023-10-23] MEDS ORDERED: HOME MED LIST COMPLETE! XX SCH (04:30)
[2023-10-23] MEDS ORDERED: ASPIRIN 81MG CHEW TABLET PO ONE (05:00)
[2023-10-23] MEDS ORDERED: PANTOPRAZOLE 40MG VIAL IV ONE (05:00)
[2023-10-23] MEDS ORDERED: METOPROLOL TART 12.5 MG PER 1/2 TAB PO ONE (05:00)
[2023-10-23] MEDS ORDERED: ENOXAPARIN 120MG/0.8ML SYRINGE SC ONE (05:00)
[2023-10-23 06:10] VITALS: BP 172/68; TEMP 97; O2SAT 98
[2023-10-23 06:24] LABS: HEMOGLOBIN A1c 5.9 % (4.0-6.0)
[2023-10-23 06:40] LABS: BLOOD UREA NITROGEN 17 MG/DL (9-23); CALCIUM LEVEL 8.8 MG/DL (8.3-10.6); CARBON DIOXIDE LEVEL 26 MMOL/L (20-31); CHLORIDE LEVEL 108 MMOL/L (98-107); CREATININE FOR GFR 0.81 MG/DL (0.70-1.30); GLOMERULAR FILTRATION RATE > 60.0 (>42); GLUCOSE, FASTING 115 MG/DL (74-106); MAGNESIUM LEVEL 1.9 MG/DL (1.8-2.4); POTASSIUM SERUM 4.3 MMOL/L (3.5-5.1); SODIUM LEVEL 141 MMOL/L (136-145)
[2023-10-23] MEDS ORDERED: INSULIN LISPRO (NovoLOG) PER UNIT SC SCH ×2 (07:30→21:00)
[2023-10-23 07:39] VITALS: BP 158/75; TEMP 97.3; O2SAT 96
[2023-10-23 08:41] LABS: APPEARANCE, URINE CLEAR (CLEAR); BACTERIA, URINE AUTO NEGATIVE (NEGATIVE); BILIRUBIN, URINE AUTO NEGATIVE (NEGATIVE); BLOOD, URINE BLOOD NEGATIVE (NEGATIVE); COLOR, URINE STRAW (YELLOW); GLUCOSE, URINE (UA) AUTO NEGATIVE (NEGATIVE); KETONE, URINE AUTO NEGATIVE (NEGATIVE); LEUKOCYTE ESTERASE, URINE AUTO NEGATIVE (NEGATIVE); NITRITE, URINE AUTO NEGATIVE (NEGATIVE); PROTEIN, URINE AUTO NEGATIVE (NEGATIVE); RBC, URINE AUTO 0 /HPF (0-3); SPECIFIC GRAVITY URINE AUTO 1.018 (1.002-1.035); SQUAMOUS EPITHELIAL CELL UR AU 0 /HPF (0-6); UROBILINOGEN, URINE AUTO 0.2 mg/dL (0.0-2.0); WBC, URINE AUTO 1 /HPF (0-3)
[2023-10-23 11:39] VITALS: BP 138/67; TEMP 97.6; O2SAT 97
[2023-10-23] MEDS: OMEPRAZOLE 20MG CAP PO SCH (13:41)
[2023-10-23] MEDS: LR 1,000 ML IV SCH ×2 (13:46→20:27)
[2023-10-23 15:29] VITALS: BP 132/63; TEMP 97.6; O2SAT 97
[2023-10-23] MEDS ORDERED: FONDAPARINUX SODIUM 2.5 MG/0.5 ML SYRINGE SC SCH (17:00)
[2023-10-23] MEDS ORDERED: FONDAPARINUX SODIUM 2.5 MG/0.5 ML SYRINGE SC ONE (17:00)
[2023-10-23] MEDS: BACLOFEN 10 MG TAB PO SCH ×2 (17:42→20:24)
[2023-10-23] MEDS: GABAPENTIN 300 MG CAP PO SCH ×2 (17:43→20:24)
[2023-10-23 19:07] VITALS: BP 146/68; TEMP 97.5; O2SAT 97
[2023-10-23] MEDS: METOPROLOL TART 12.5 MG PER 1/2 TAB PO SCH (20:25)
[2023-10-23] MEDS ORDERED: TERAZOSIN 5MG CAPSULE PO SCH (21:00)
[2023-10-23 23:40] VITALS: BP 119/66; TEMP 96.8; O2SAT 96
[2023-10-24 03:36] VITALS: BP 125/66; TEMP 96.9; O2SAT 99
[2023-10-24 04:09] LABS: HEMATOCRIT 37.2 % (42.0-52.0); HEMOGLOBIN 12.1 g/dl (13.5-17.5); MEAN CORPUSCULAR HGB CONC 32.5 g/dl (32.0-36.5); MEAN CORPUSCULAR VOLUME 86.1 fl (80.0-96.0); PLATELET COUNT, AUTOMATED 170 10^3/uL (150-450); RED BLOOD COUNT 4.32 10^6/uL (4.30-6.10); WHITE BLOOD COUNT 5.2 10^3/uL (4.0-10.0)
[2023-10-24] MEDS: LR 1,000 ML IV SCH (04:20)
[2023-10-24 04:47] LABS: BLOOD UREA NITROGEN 15 MG/DL (9-23); CALCIUM LEVEL 8.9 MG/DL (8.3-10.6); CARBON DIOXIDE LEVEL 25 MMOL/L (20-31); CHLORIDE LEVEL 109 MMOL/L (98-107); CREATININE FOR GFR 0.85 MG/DL (0.70-1.30); GLOMERULAR FILTRATION RATE > 60.0 (>42); GLUCOSE, FASTING 123 MG/DL (74-106); MAGNESIUM LEVEL 1.9 MG/DL (1.8-2.4); PHOSPHORUS LEVEL 4.2 MG/DL (2.4-5.1); POTASSIUM SERUM 4.3 MMOL/L (3.5-5.1); SODIUM LEVEL 139 MMOL/L (136-145)
[2023-10-24 07:31] LABS: CPK CREATINE PHOSPHOKINASE 365 U/L (46-171)
[2023-10-24 08:25] VITALS: BP 132/60; TEMP 96.9; O2SAT 97
[2023-10-24] MEDS ORDERED: ASPIRIN 81MG ENTERIC TABLET PO SCH (09:00)
[2023-10-24 10:01] VITALS: BP 134/68
[2023-10-24] MEDS: BACLOFEN 10 MG TAB PO SCH (10:01)
[2023-10-24] MEDS: METOPROLOL TART 12.5 MG PER 1/2 TAB PO SCH (10:01)
[2023-10-24] MEDS: GABAPENTIN 300 MG CAP PO SCH (10:01)
[2023-10-24] MEDS ORDERED: EZET10TA21 PO (11:33)
[2023-10-24] MEDS: OMEPRAZOLE 20MG CAP PO SCH (12:29)
[2023-10-24] MEDS ORDERED: FONDAPARINUX SODIUM 2.5 MG/0.5 ML SYRINGE SC SCH (21:00)
== END 2023-10-24 12:55 | disposition home or self-care (01) | DRG 558 ==
LOC: M ED 20:50 → M ED INP 10-23 04:02 → ENRESERV 10-23 04:51 → M PCU 10-23 06:09
PROVIDERS: ADMIT Internal Medicine; ATTEND Internal Medicine
PROC: B246ZZZ Ultrasonography of Right and Left Heart (ICD-10-PCS; principal; 2023-10-23)
DX: M62.82 Rhabdomyolysis (principal); I25.10 Atherosclerotic heart disease of native coronary artery without angina pectoris; G35 Multiple sclerosis; I27.20 Pulmonary hypertension, unspecified; I10 Essential (primary) hypertension; K21.9 Gastro-esophageal reflux disease without esophagitis; Z79.82 Long term (current) use of aspirin; Z79.899 Other long term (current) drug therapy; Z91.011 Allergy to milk products; Z20.822 Contact with and (suspected) exposure to COVID-19; Z95.5 Presence of coronary angioplasty implant and graft; R07.89 Other chest pain

== ENCOUNTER 2023-11-08 17:47 | Emergency (ER) | payer OTHER ==
[~2023-11-08] VITALS: Ht 180.3 cm; Wt 120.2 kg
[~2023-11-08 17:47] MED LIST changes: +EZET10TA21 PO; +FLUT1BLS2 IH; +METO25TA4 PO
[2023-11-08 18:19] LABS: BASO % 0.5 % (0.0-1.0); EOS # 0.1 10^3/uL (0.0-0.5); EOS % 1.9 % (0.0-3.0); HEMOGLOBIN 14.3 g/dl (13.5-17.5); LYMPH # 0.8 10^3/uL (1.5-5.0); LYMPH % 12.6 % (24.0-44.0); MEAN CORPUSCULAR HEMOGLOBIN 28.8 pg (27.0-33.0); MEAN CORPUSCULAR HGB CONC 33.3 g/dl (32.0-36.5); MEAN CORPUSCULAR VOLUME 86.5 fl (80.0-96.0); MONO # 0.5 10^3/uL (0.0-0.8); MONO % 7.4 % (2.0-8.0); NEUTROPHILS # 4.9 10^3/uL (1.5-8.5); NEUTROPHILS % 77.3 % (36.0-66.0); PLATELET COUNT, AUTOMATED 189 10^3/uL (150-450); RED BLOOD COUNT 4.97 10^6/uL (4.30-6.10); WHITE BLOOD COUNT 6.4 10^3/uL (4.0-10.0)
[2023-11-08 18:44] LABS: LIPASE 33 U/L (12-53)
[2023-11-08 18:58] LABS: ALBUMIN 4.3 G/DL (3.2-5.2); ALKALINE PHOSPHATASE 115 U/L (46-116); ALT/SGPT 33 U/L (7.0-40); AST/SGOT 31 U/L (<34); BILIRUBIN,DIRECT < 0.1 MG/DL (<0.4); BILIRUBIN,TOTAL 0.3 MG/DL (0.3-1.2); BLOOD UREA NITROGEN 19 MG/DL (9-23); CALCIUM LEVEL 9.2 MG/DL (8.3-10.6); CARBON DIOXIDE LEVEL 26 MMOL/L (20-31); CHLORIDE LEVEL 104 MMOL/L (98-107); CK-MB VALUE MASS 8.8 NG/ML (<3.6); CPK CREATINE PHOSPHOKINASE 479 U/L (46-171); CREATININE FOR GFR 0.88 MG/DL (0.70-1.30); FREE T4 1.02 NG/DL (0.89-1.76); GLOMERULAR FILTRATION RATE > 60.0 (>42); MB/CK RELATIVE INDEX 1.83 (< OR =4); POTASSIUM SERUM 4.4 MMOL/L (3.5-5.1); SODIUM LEVEL 135 MMOL/L (136-145); THYROID STIMULATING HORMONE 3.139 uIU/ML (0.55-4.78)
[2023-11-08 19:03] LABS: GLUCOSE, FASTING 128 MG/DL (74-106)
[2023-11-08 19:51] LABS: CK-MB VALUE MASS 7.8 NG/ML (<3.6)
[2023-11-08 19:54] LABS: MB/CK RELATIVE INDEX 1.78 (< OR =4)
[2023-11-08] MEDS: METOPROLOL TART 25 MG TABLET PO ONE (20:04)
[2023-11-08 20:05] VITALS: BP 170/83
[2023-11-08] MEDS: NITROGLYCERIN 2% OINT 1 GM *U/D* PKT TOP ONE (20:05)
[2023-11-08 20:45] LABS: INR 0.95; PROTHROMBIN TIME 12.4 SECONDS (12.5-14.5)
[2023-11-08 20:46] LABS: PARTIAL THROMBOPLASTIN TIME 29.7 SECONDS (24.8-34.2)
[2023-11-08] MEDS: HEPARIN DRIP 25,000 UNITS in IV 1 EA IV SCH (20:48)
[2023-11-08] MEDS: HEPARIN SOD (PORCINE) 5000UNITS/ML 1ML VIAL/SYRINGE IV ONE (20:49)
[2023-11-08 20:55] LABS: MB/CK RELATIVE INDEX 1.85 (< OR =4)
[2023-11-08 21:00] VITALS: BP 139/71; TEMP 98.1; O2SAT 97
== END 2023-11-08 21:14 | disposition short-term general hospital (02) ==
LOC: M ED 17:47
DX: I21.4 Non-ST elevation (NSTEMI) myocardial infarction (principal); I49.1 Atrial premature depolarization; I10 Essential (primary) hypertension; E78.5 Hyperlipidemia, unspecified; J44.9 Chronic obstructive pulmonary disease, unspecified; F10.10 Alcohol abuse, uncomplicated; Z86.79 Personal history of other diseases of the circulatory system; Z91.011 Allergy to milk products; Z79.82 Long term (current) use of aspirin; Z79.891 Long term (current) use of opiate analgesic; Z79.83 Long term (current) use of bisphosphonates; Z79.899 Other long term (current) drug therapy

== ENCOUNTER 2023-11-23 10:24 | Emergency (ER) | payer OTHER ==
[~2023-11-23] VITALS: Ht 180.3 cm; Wt 117.2 kg
[2023-11-23] MEDS ORDERED: ROSU20TA61 PO (10:42)
[2023-11-23] MEDS ORDERED: CLOP75TA2 PO (10:44)
[2023-11-23] MEDS ORDERED: FAMO20TA PO (10:44)
[2023-11-23] MEDS ORDERED: NITR0.4S14 SL (10:45)
[2023-11-23 10:56] LABS: BASO % 0.8 % (0.0-1.0); EOS # 0.2 10^3/uL (0.0-0.5); EOS % 2.9 % (0.0-3.0); HEMATOCRIT 40.4 % (42.0-52.0); HEMOGLOBIN 13.1 g/dl (13.5-17.5); LYMPH # 0.6 10^3/uL (1.5-5.0); LYMPH % 11.8 % (24.0-44.0); MEAN CORPUSCULAR HEMOGLOBIN 28.4 pg (27.0-33.0); MEAN CORPUSCULAR HGB CONC 32.4 g/dl (32.0-36.5); MEAN CORPUSCULAR VOLUME 87.6 fl (80.0-96.0); MONO # 0.4 10^3/uL (0.0-0.8); MONO % 8.2 % (2.0-8.0); NEUTROPHILS # 3.9 10^3/uL (1.5-8.5); NEUTROPHILS % 76.1 % (36.0-66.0); PLATELET COUNT, AUTOMATED 188 10^3/uL (150-450); RED BLOOD COUNT 4.61 10^6/uL (4.30-6.10); WHITE BLOOD COUNT 5.2 10^3/uL (4.0-10.0)
[2023-11-23 11:19] LABS: CK-MB VALUE MASS 7.9 NG/ML (<3.6)
[2023-11-23 11:22] LABS: CPK CREATINE PHOSPHOKINASE 269 U/L (46-171); MB/CK RELATIVE INDEX 2.93 (< OR =4)
[2023-11-23 11:34] LABS: RSV AMPLIFICATION NEGATIVE (NEGATIVE)
[2023-11-23 11:53] LABS: BLOOD UREA NITROGEN 15 MG/DL (9-23); CALCIUM LEVEL 9.5 MG/DL (8.3-10.6); CARBON DIOXIDE LEVEL 26 MMOL/L (20-31); CHLORIDE LEVEL 107 MMOL/L (98-107); CREATININE FOR GFR 0.92 MG/DL (0.70-1.30); GLOMERULAR FILTRATION RATE > 60.0 (>42); GLUCOSE, FASTING 127 MG/DL (74-106); POTASSIUM SERUM 4.3 MMOL/L (3.5-5.1); SODIUM LEVEL 142 MMOL/L (136-145)
[2023-11-23 12:22] LABS: CK-MB VALUE MASS 6.9 NG/ML (<3.6)
[2023-11-23 12:25] LABS: MB/CK RELATIVE INDEX 2.81 (< OR =4)
[2023-11-23] MEDS ORDERED: FLUT1BLS5 IH (12:53)
[2023-11-23] MEDS ORDERED: HOME MED LIST COMPLETE! XX SCH (12:55)
[2023-11-23] MEDS ORDERED: CARA1TAB6 PO (15:31)
[2023-11-23 16:06] VITALS: BP 119/62; TEMP 97.6; O2SAT 96
== END 2023-11-23 16:00 | disposition home or self-care (01) ==
LOC: EDBD 10:24 → M ED 10:24
DX: K44.9 Diaphragmatic hernia without obstruction or gangrene (principal); K21.9 Gastro-esophageal reflux disease without esophagitis; R07.89 Other chest pain; I25.10 Atherosclerotic heart disease of native coronary artery without angina pectoris; I10 Essential (primary) hypertension; E78.5 Hyperlipidemia, unspecified; J44.9 Chronic obstructive pulmonary disease, unspecified; N40.0 Benign prostatic hyperplasia without lower urinary tract symptoms; G47.33 Obstructive sleep apnea (adult) (pediatric); E73.9 Lactose intolerance, unspecified; Z95.5 Presence of coronary angioplasty implant and graft; Z95.1 Presence of aortocoronary bypass graft; Z79.82 Long term (current) use of aspirin; Z79.899 Other long term (current) drug therapy

== ENCOUNTER 2024-08-04 12:49 | Emergency (ER) | payer OTHER ==
[~2024-08-04] VITALS: Ht 180.3 cm; Wt 100.0 kg
[~2024-08-04 12:49] MED LIST changes: +CARA1TAB6 PO; +CLOP75TA2 PO; +FAMO20TA PO; +FLUT1BLS5 IH; +GABA-1172 PO; -GABA-282 PO; +NITR0.4S14 SL; +ROSU20TA86 PO; -ROSU40TA4 PO; +ROSU40TA81 PO
[2024-08-04 13:40] LABS: BASO % 0.6 % (0.0-1.0); EOS # 0.1 10^3/uL (0.0-0.5); EOS % 1.9 % (0.0-3.0); HEMOGLOBIN 13.3 g/dl (13.5-17.5); LYMPH # 0.6 10^3/uL (1.5-5.0); LYMPH % 13.5 % (24.0-44.0); MEAN CORPUSCULAR HEMOGLOBIN 28.7 pg (27.0-33.0); MEAN CORPUSCULAR HGB CONC 33.3 g/dl (32.0-36.5); MEAN CORPUSCULAR VOLUME 86.2 fl (80.0-96.0); MONO # 0.5 10^3/uL (0.0-0.8); MONO % 10.4 % (2.0-8.0); NEUTROPHILS # 3.5 10^3/uL (1.5-8.5); NEUTROPHILS % 73.4 % (36.0-66.0); PLATELET COUNT, AUTOMATED 183 10^3/uL (150-450); RED BLOOD COUNT 4.64 10^6/uL (4.30-6.10); WHITE BLOOD COUNT 4.7 10^3/uL (4.0-10.0)
[2024-08-04 13:51] LABS: PARTIAL THROMBOPLASTIN TIME 30.1 SECONDS (24.8-34.2); PROTHROMBIN TIME 13.5 SECONDS (12.5-14.5)
[2024-08-04] MEDS ORDERED: ISOVUE-370 76% 100ML VIAL As Ordered ONE (13:52)
[2024-08-04 14:10] LABS: LIPASE 29 U/L (12-53)
[2024-08-04 14:11] LABS: CK-MB VALUE MASS 4.9 NG/ML (<3.6)
[2024-08-04 14:12] LABS: ALBUMIN 3.5 G/DL (3.2-5.2); ALKALINE PHOSPHATASE 85 U/L (40-129); ALT/SGPT 27 U/L (7.0-40); AST/SGOT 19 U/L (<34); BILIRUBIN,DIRECT 0.1 MG/DL (<0.4); BILIRUBIN,TOTAL 0.5 MG/DL (0.3-1.2); BLOOD UREA NITROGEN 12 MG/DL (9-23); CARBON DIOXIDE LEVEL 26 MMOL/L (20-31); CHLORIDE LEVEL 109 MMOL/L (98-107); CPK CREATINE PHOSPHOKINASE 259 U/L (46-171); CREATININE FOR GFR 0.88 MG/DL (0.70-1.30); GLOMERULAR FILTRATION RATE > 60.0 (>42); GLUCOSE, FASTING 110 MG/DL (74-106); MB/CK RELATIVE INDEX 1.89 (< OR =4); POTASSIUM SERUM 4.5 MMOL/L (3.5-5.1); SODIUM LEVEL 140 MMOL/L (136-145); TOTAL PROTEIN 6.8 G/DL (5.7-8.2)
[2024-08-04 14:14] LABS: THYROID STIMULATING HORMONE 2.396 uIU/ML (0.55-4.78)
[2024-08-04 14:15] LABS: FREE T4 1.32 NG/DL (0.89-1.76)
[2024-08-04 15:08] LABS: CK-MB VALUE MASS 7.1 NG/ML (<3.6)
[2024-08-04 15:10] LABS: MB/CK RELATIVE INDEX 2.99 (< OR =4)
[2024-08-04 17:09] LABS: CK-MB VALUE MASS 4.4 NG/ML (<3.6)
[2024-08-04 17:11] LABS: MB/CK RELATIVE INDEX 1.79 (< OR =4)
[2024-08-04] MEDS: NITROGLYCERIN 2% OINT 1 GM *U/D* PKT TOP ONE (18:22)
[2024-08-04] MEDS: HEPARIN SOD (PORCINE) 5000UNITS/ML 1ML VIAL/SYRINGE IV ONE (19:32)
[2024-08-04] MEDS: HEPARIN DRIP 25,000 UNITS in IV 1 EA IV SCH (19:32)
[2024-08-04] MEDS: METOPROLOL TART 12.5 MG PER 1/2 TAB PO SCH (21:00)
[2024-08-04] MEDS ORDERED: SUCR1TA PO (22:32)
[2024-08-04] MEDS ORDERED: FLUT1BLS5 INH (22:44)
[2024-08-04] MEDS ORDERED: MAGN400T2 PO (22:44)
[2024-08-04] MEDS ORDERED: METO1TAB87 PO (22:44)
[2024-08-04] MEDS ORDERED: BACL10TA2 PO (22:44)
[2024-08-04] MEDS ORDERED: FERR325T3 PO (22:44)
[2024-08-04] MEDS ORDERED: HOME MED LIST COMPLETE! XX SCH (22:45)
[2024-08-04] MEDS ORDERED: MAALOX 30 ML SUSP *UDC PO PRN (23:55)
[2024-08-04] MEDS ORDERED: MOM 30ML SUSPENSION UDC PO PRN (23:55)
[2024-08-04] MEDS ORDERED: ACETAMINOPHEN 325 MG TAB PO PRN (23:55)
[2024-08-05] MEDS ORDERED: HEPARIN SOD (PORCINE) 5000UNITS/ML 1ML VIAL/SYRINGE IV ONE
[2024-08-05] MEDS ORDERED: HEPARIN SOD (PORCINE) 5000UNITS/ML 1ML VIAL/SYRINGE IV PRN
[2024-08-05] MEDS ORDERED: BACLOFEN 10 MG TAB PO PRN
[2024-08-05] MEDS ORDERED: SUCRALFATE 1 GM TAB PO PRN
[2024-08-05] MEDS: ROSUVASTATIN 10 MG TAB (CRESTOR) PO SCH ×2 (00:59→20:26)
[2024-08-05] MEDS: HEPARIN DRIP 25,000 UNITS in IV 1 EA IV SCH (01:03)
[2024-08-05 01:15] LABS: HEMATOCRIT 36.3 % (42.0-52.0); HEMOGLOBIN 12.2 g/dl (13.5-17.5); MEAN CORPUSCULAR HEMOGLOBIN 29.1 pg (27.0-33.0); MEAN CORPUSCULAR HGB CONC 33.6 g/dl (32.0-36.5); MEAN CORPUSCULAR VOLUME 86.6 fl (80.0-96.0); PLATELET COUNT, AUTOMATED 170 10^3/uL (150-450); RED BLOOD COUNT 4.19 10^6/uL (4.30-6.10); WHITE BLOOD COUNT 5.8 10^3/uL (4.0-10.0)
[2024-08-05] MEDS: TERAZOSIN 5MG CAPSULE PO SCH (01:16)
[2024-08-05] MEDS ORDERED: DEXTROSE 50% 50ML SYRINGE IV PRN (02:10)
[2024-08-05] MEDS ORDERED: GLUCOSE 4 GM CHEW PO PRN (02:10)
[2024-08-05] MEDS ORDERED: GLUCAGON INJ 1MG VIAL SC PRN (02:10)
[2024-08-05] MEDS: INSULIN LISPRO (NovoLOG) PER UNIT SC SCH ×2 (08:03→20:26)
[2024-08-05 08:31] LABS: BASO % 0.6 % (0.0-1.0); EOS # 0.2 10^3/uL (0.0-0.5); EOS % 3.1 % (0.0-3.0); HEMATOCRIT 39.4 % (42.0-52.0); HEMOGLOBIN 12.6 g/dl (13.5-17.5); LYMPH # 0.7 10^3/uL (1.5-5.0); MEAN CORPUSCULAR HEMOGLOBIN 28.4 pg (27.0-33.0); MEAN CORPUSCULAR VOLUME 88.7 fl (80.0-96.0); MONO # 0.4 10^3/uL (0.0-0.8); MONO % 9.1 % (2.0-8.0); NEUTROPHILS # 3.5 10^3/uL (1.5-8.5); PLATELET COUNT, AUTOMATED 154 10^3/uL (150-450); RED BLOOD COUNT 4.44 10^6/uL (4.30-6.10); WHITE BLOOD COUNT 4.9 10^3/uL (4.0-10.0)
[2024-08-05] MEDS: ASPIRIN 81MG ENTERIC TABLET PO SCH (09:03)
[2024-08-05 09:04] LABS: BLOOD UREA NITROGEN 12 MG/DL (9-23); CALCIUM LEVEL 9.4 MG/DL (8.3-10.6); CARBON DIOXIDE LEVEL 28 MMOL/L (20-31); CHLORIDE LEVEL 108 MMOL/L (98-107); CHOLESTEROL LEVEL 224 MG/DL (<200); CHOLESTEROL RISK RATIO 4.92 (<5); CREATININE FOR GFR 0.87 MG/DL (0.70-1.30); GLOMERULAR FILTRATION RATE > 60.0 (>42); GLUCOSE, FASTING 108 MG/DL (74-106); HDL CHOLESTEROL 45.5 MG/DL (>40); LDL CHOLESTEROL 159.7 MG/DL (<100); NON-HDL-C 178.5 MG/DL; POTASSIUM SERUM 4.6 MMOL/L (3.5-5.1); SODIUM LEVEL 139 MMOL/L (136-145); TRIGLYCERIDES LEVEL 94 MG/DL (<150)
[2024-08-05] MEDS: MAGNESIUM OXIDE 400MG TAB (MAG-OX) PO SCH (09:04)
[2024-08-05] MEDS: CLOPIDOGREL 75 MG TAB PO SCH (09:04)
[2024-08-05] MEDS: FAMOTIDINE 20 MG TAB PO SCH (09:04)
[2024-08-05 09:25] LABS: HEMOGLOBIN A1c 5.8 % (4.0-6.0)
[2024-08-05 20:24] VITALS: BP 156/70
[2024-08-05] MEDS: EZETIMIBE 10MG TABLET (ZETIA) PO SCH (20:24)
[2024-08-06 06:52] VITALS: BP 144/77; TEMP 96.8; O2SAT 98
== END 2024-08-06 07:05 | disposition short-term general hospital (02) ==
LOC: M ED 12:49 → EDBD 12:49 → M ED 08-06 07:05
DX: I21.4 Non-ST elevation (NSTEMI) myocardial infarction (principal); I25.10 Atherosclerotic heart disease of native coronary artery without angina pectoris; K44.0 Diaphragmatic hernia with obstruction, without gangrene; E73.9 Lactose intolerance, unspecified; E78.5 Hyperlipidemia, unspecified; I25.2 Old myocardial infarction; E11.9 Type 2 diabetes mellitus without complications; Z95.1 Presence of aortocoronary bypass graft; Z95.5 Presence of coronary angioplasty implant and graft; F17.200 Nicotine dependence, unspecified, uncomplicated
CPT/HCPCS: 71045; 71275; 80047; 80048; 80061; 80076; 82550; 82553; 83036; 83690; 83880; 84439; 84443; 84484; 85025; 85027; 85610; 85730; 93005; 93041; 93971; 94760; 96365; 96366; 99285; J1815; Q9967

== ENCOUNTER → 2024-10-25 | Outpatient (CLI) | payer OTHER, MEDICARE ==
[~2024-10-25] MED LIST changes: +FERR325T3 PO; +FLUT1BLS5 INH; +MAGN400T2 PO; +METO1TAB87 PO; +SUCR1TA PO
== END ==
LOC: M RAD 10:51
PROVIDERS: ATTEND Nurse Practitioner Family
DX: R10.84 Generalized abdominal pain (principal); K44.9 Diaphragmatic hernia without obstruction or gangrene; J98.4 Other disorders of lung; N28.1 Cyst of kidney, acquired; N20.0 Calculus of kidney; N13.4 Hydroureter; N40.0 Benign prostatic hyperplasia without lower urinary tract symptoms; N43.3 Hydrocele, unspecified; K57.40 Diverticulitis of both small and large intestine with perforation and abscess without bleeding; I70.0 Atherosclerosis of aorta